=== PATIENT | male | born 1970 | race Caucasian/White ===

== ENCOUNTER 2024-08-19 11:19 | Emergency (ER) | payer OTHER, SELFPAY ==
[2024-08-19] VITALS (15 sets, daily range): BP systolic 118–129; BP diastolic 83–99; PULSE 80–202; TEMP 37.3; O2SAT 94–99; BMI 27.9
--- NOTE | 2024-08-19 11:31 | ECG_ITS ---
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 Measurements Intervals [place] Rate: 188 P: -[id number] NM: -[id number] QRS: -25 QRSD: 120 T: 78 QT: 318 QTc: 415 Interpretive Statements SUPRAVENTRICULAR TACHYCARDIA ST segment depression, consider subendocardial ischemia 7202 Moderate left axis deviation abnormal ECG Compared to ECG 10/16/2018 14:15:34 Left-axis deviation now present Supraventricular tachycardia has replaced sinus rhythm ST segment depression is now present Electronically Signed On 08-19-2024 19:15:46 EDT by LEON DARBY M.D.
--- NOTE | 2024-08-19 11:31 | XR_ITS ---
The [place] [address] Patient Name: JACKSON BENNETT MRN: [id number] date: 1970 Sex: M Assigned Patient Location: ED.MAIN Current Patient Location: ED.MAIN Accession/Order Number: [id number] Exam Date: 08/19/2024 12:07 Report Date: 08/19/2024 12:08 At the request of: VIET MONTE MD Procedure: XR chest 1V PORTABLE AP ERECT CHEST 1158 hours CLINICAL HISTORY: Tachycardia and lightheadedness after bending over COMPARISON: 04/19/2018 The heart is within normal limits. There is no vascular congestion. The lungs, as visualized, are clear. There is no effusion or pneumothorax. The osseous structures are intact. There is endplate spurring at the spine. XR/XR chest 1V IMPRESSION: NO ACUTE FINDINGS Impression dictated by: Cary Diallo M.D. 08/19/2024 12:08 PM Dictation Location: [place] [address] Electronically authenticated by: [id number] Y Date: 08/19/2024 12:08
--- NOTE | 2024-08-19 11:32 | ED.GENADUL1 ---
HPI HPI - General Adult General Chief complaint: Arrhythmia/Palpitations Stated complaint: FAST HEART RATE, BACK PAIN Time Seen by Provider: 08/19/24 11:27 Source: patient Mode of arrival: Wheelchair History of Present Illness HPI narrative: 53-year-old male presents for fast heartbeat. It started by half an hour ago when he was walking outside at his home. There was no specific exertion. He has never had this happen before. No syncope or near syncope. Symptom has been continuous. Related Data Allergies Allergy/AdvReac Type Severity Reaction Status Date / Time No Known Drug Allergies Allergy Verified 08/19/24 11:32 Review of Systems ROS Narrative A ten point review of systems is negative except as noted above. PFSH PFSH Social History Little interest or pleasure in doing things: not at all Feeling down, depressed, or hopeless: not at all Exam Narrative Exam Narrative: Nurses note and vital signs reviewed and patient is not hypoxic. General: The patient appears well and in no apparent distress. Patient is resting comfortably on cart. Skin: Warm, dry, no pallor noted. There is no rash noted. Head: Normocephalic, atraumatic Eye: Normal conjunctiva, no drainage Ears, Nose, Mouth, and Throat: oral mucosa is moist. Nares patent. Cardiovascular: Regular Rate and Rhythm, tachycardic Respiratory: Patient is in no distress, no accessory muscle use, lungs are clear to auscultation, no wheezing, rales or rhonchi Back: non-tender, no CVA tenderness bilaterally to percussion. GI: Soft and nontender Musculoskeletal: The patient has no evidence of calf tenderness, no pitting edema, symmetrical pulses noted bilaterally Neurological: A&O, normal speech Psychiatric: Cooperative Constitutional Vital Signs, click to edit/add: Last Vital Signs Temp 99.1 F 08/19/24 11:29 Pulse 81 08/19/24 11:50 Resp 16 08/19/24 11:50 BP 124/85 08/19/24 11:48 Pulse Ox 99 08/19/24 11:50 O2 Del Method Room Air 08/19/24 11:29 Course Vital Signs Vital signs: Vital Signs Pulse Rate 191 H 08/19/24 11:26 Respiratory Rate 14 08/19/24 11:26 Temperature 99.1 F 08/19/24 11:29 Pulse Rate 81 08/19/24 11:50 Respiratory Rate 16 08/19/24 11:50 Blood Pressure 124/85 08/19/24 11:48 Pulse Oximetry 99 08/19/24 11:50 Oxygen Delivery Method Room Air 08/19/24 11:29 Medical Decision Making MDM Narrative Medical decision making narrative: The patient presented with SVT. He received 6 mg of adenosine without change and then another dose of 6 mg again without change. He was given 12 mg of IV adenosine which then converted him into a normal sinus rhythm where he remains. His laboratory analysis is negative and he is feeling much better and is able to be discharged home. Prompt follow-up with cardiology was advised. Treatment diagnosis and follow-up were discussed with the patient. Differential Diagnosis Differential Diagnosis: SVT, A-fib, a flutter, sinus tachycardia Lab Data Lab results reviewed: Yes I reviewed the patient's lab results Labs: Lab Results 08/19/24 Range/Units 11:30 WBC 7.1 (4.0-11.0) 10^3/uL RBC 6.03 (4.70-6.10) 10^6/uL Hgb 18.0 (14.0-18.0) g/dL Hct 52.2 (42.0-54.0) % MCV 86.6 (80.0-94.0) fL MCH 29.9 (25.9-34.0) pg MCHC 34.5 (29.9-35.2) g/dL RDW 12.4 (11.0-15.0) % Plt Count 175 (150-450) 10^3/uL MPV 11.4 (9.5-13.5) fL Neut % (Auto) 51.1 (43.0-75.0) % Lymph % (Auto) 31.7 (20.5-60.0) % [place] % (Auto) 13.8 H (1.7-12.0) % Eos % (Auto) 2.0 (0.9-7.0) % Baso % (Auto) 1.0 (0.2-2.0) % Neut # (Auto) 3.6 (1.4-6.5) 10^3/uL Lymph # (Auto) 2.3 (1.2-3.8) 10^3/uL [place] # (Auto) 1.0 H (0.3-0.8) 10^3/uL Eos # (Auto) 0.1 (0.0-0.7) 10^3/uL Baso # (Auto) 0.1 (0.0-0.1) 10^3/uL Abs Immat Gran (auto) 0.03 (0.00-0.03) 10^3/uL Imm/Tot Granulo (auto) 0.4 (0.0-0.5) % Sodium 138 (136-145) mmol/L Potassium 3.7 (3.5-5.1) mmol/L Chloride 100 (98-107) mmol/L Carbon Dioxide 26.6 (21.0-32.0) mmol/L Anion Gap 15.1 BUN 16.0 (7.0-18.0) mg/dL Creatinine 1.33 H (0.70-1.30) mg/dL Est GFR ( Amer) >60 (>=60 mL/min/1.73m^2) Est GFR (Non-Af Amer) 56 L (>=60 mL/min/1.73m^2) BUN/Creatinine Ratio 12.0 Glucose 192 H (74-106) mg/dL Calcium 9.0 (8.5-10.1) mg/dL Magnesium 1.9 (1.8-2.4) mg/dL Troponin I High Sens 11.7 (4.0-76.1) pg/mL Imaging Data Chest x-ray: Radiologist's impression: ITS Impressions Chest X-Ray 08/19/24 11:31 IMPRESSION: NO ACUTE FINDINGS Impression dictated by: Cary Diallo M.D. 08/19/2024 12:08 PM Dictation Location: [place] [address] Electronically authenticated by: [id number] Y Date: 08/19/2024 12:08 ECG Data Attestation: I personally reviewed and interpreted this ECG as follows: (EKG on my interpretation shows SVT with a rate of 188) Discharge Plan Discharge Chief Complaint: Arrhythmia/Palpitations Clinical Impression: Supraventricular tachycardia Patient Disposition: Home, Self-Care Time of Disposition Decision: 12:21 Condition: Good Mode of Transportation: Private Vehicle Print Language: Djiboutian Instructions: Supraventricular Tachycardia (ED) Referrals: Chinedu Saucedo MD [Physician, Cardiology] - 1 week Naderer,Henrik, MD [Primary Care Provider, Family Practice] - 1 week
[2024-08-19] MEDS: ADENOSINE 6 MG/2 ML VIAL IVP ×2 (11:35→11:39)
--- NOTE | 2024-08-19 11:39 | PC.NURSE ---
Dr. Ambrosio at bedside, 6mg of adenosine adminstered at 1135 per order. heart rate 202 down to 183bpm. another 6mg given at [address] Ambrosio at bedside. heart rate 195 to 177. pt tolerating as expected.
[2024-08-19] MEDS: 0.9 % SODIUM CHLORIDE 1,000 ML 1000 ML IV (11:40)
--- NOTE | 2024-08-19 11:43 | PC.NURSE ---
Dr. Ambrosio remains at bedside. 12mg of adenosine administered per order at 1144. heart rate 190 down to 89. heart rate now normal sinus at 116. pt tolerated as expected. repeat ekg captured in normal sinus.
[2024-08-19] MEDS: ADENOSINE 6 MG/2 ML VIAL 12 MG IVP (11:44)
[2024-08-19 11:55] LABS: Basophils Absolute Auto 0.1 10^3/uL (0.0-0.1); Eosinophils Absolute Auto 0.1 10^3/uL (0.0-0.7); Hematocrit 52.2 % (42.0-54.0); Immature Granulocytes Abs Auto 0.03 10^3/uL (0.00-0.03); Immature Granulocytes Pct Auto 0.4 % (0.0-0.5); Lymphocytes Absolute Auto 2.3 10^3/uL (1.2-3.8); Lymphocytes Percent Auto 31.7 % (20.5-60.0); Mean Corpuscular HGB Conc 34.5 g/dL (29.9-35.2); Mean Corpuscular Hemoglobin 29.9 pg (25.9-34.0); Mean Corpuscular Volume 86.6 fL (80.0-94.0); Mean Platelet Volume 11.4 fL (9.5-13.5); Monocytes Percent Auto 13.8 % (1.7-12.0); Neutrophils Absolute Auto 3.6 10^3/uL (1.4-6.5); Neutrophils Percent Auto 51.1 % (43.0-75.0); Platelet Count 175 10^3/uL (150-450); Red Blood Count 6.03 10^6/uL (4.70-6.10); Red Cell Distribution Width 12.4 % (11.0-15.0); White Blood Count 7.1 10^3/uL (4.0-11.0)
[2024-08-19 12:11] LABS: Anion Gap 15.1; Carbon Dioxide 26.6 mmol/L (21.0-32.0); Chloride 100 mmol/L (98-107); Estimated GFR (African America >60 (>=60 mL/min/1.73m^2); Estimated GFR (Non-African Ame 56 (>=60 mL/min/1.73m^2); Glucose 192 mg/dL (74-106); Magnesium 1.9 mg/dL (1.8-2.4); Potassium 3.7 mmol/L (3.5-5.1); Sodium 138 mmol/L (136-145); Troponin I High Sensitivity 11.7 pg/mL (4.0-76.1)
--- NOTE | 2024-08-19 13:13 | ECG_ITS ---
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 Measurements Intervals [place] Rate: 99 P: 66 MN: 148 QRS: -18 QRSD: 90 T: 78 QT: 332 QTc: 388 Interpretive Statements 1100 Sinus rhythm [address] depression 9150 abnormal ECG Compared to ECG 08/19/2024 11:26:23 ST (T wave) deviation is still present Supraventricular tachycardia no longer present Left-axis deviation no longer present Electronically Signed On 08-19-2024 19:16:29 EDT by LEON DARBY M.D.
== END 2024-08-19 12:50 | disposition home or self-care (01) ==
PROVIDERS: Emergency Provider Emergency Medicine; PCP Family Medicine
DX: I47.10 Supraventricular tachycardia, unspecified (principal)
CPT/HCPCS: 36415; 71045; 80048; 83735; 84484; 85025; 93005; 96374; 99285

== ENCOUNTER 2024-08-25 11:52 | Outpatient (OUT) | payer OTHER, SELFPAY ==
--- OUTSIDE RECORDS SUMMARY | 2024-08-25 10:45 | XMS_ITS | Encounter Summary ---
Author Organization [facility] Address [address] [place] [address] Care Team Providers Care Environmental Professional Name Role Phone Henrik Tubbs MD Primary Care Provider [phone] Henrik Tubbs MD Unavailable Reason for Visit * Reason Comments Back Pain Encounter Details Date Type Department Care Team (Late st Contact Info) Description 08/25/2024 10:45 AM EDT Office Visit [facility] [address] [place] [phone] Henrik Tubbs MD [address] [place] [phone] Chronic left-sided low back pain with left-sided sciatica (Primary Dx); Paroxysmal SVT (supraventricular tachycardia) (CMS/HCC) Social History Tobacco Use Types Packs/Day Years Used Date Smoking Tobacco: Former Cigarettes Smokeless Tobacco: Never Tobacco Cessation:Counseling Given: No Alcohol Use Standard Drinks/Week Comments Yes 2 (1 standard drink = 0.6 oz pur e alcohol) B1300 Health Literacy Answer Date Recor ded How often do you need to hav e someone help you when you read instructions, pamphlets, or other written material from your doctor or pharmacy? Never 08/24/2024 Humiliation, Afraid, Rape, and Kick questionnair e Answer Date Recorded Within the last year, have y ou been afraid of your partner or ex-partner? No 08/24/2024 Within the last year, have y ou been humiliated or emotionally abused in other ways by your partner or ex-partner? No Within the last year, have y ou been kicked, hit, slapped, or otherwise physically hurt by your partner or ex-partner? No 08/24/2024 Within the last year, have y ou been raped or forced to have any kind of sexual activity by your partner or ex-partner? No 08/24/2024 Social Connection and Isolation Panel [NHANES] A nswer Date Recorded In a typical week, how many times do you talk on the phone with family, friends, or neighbors? Once a week 08/24/2024 How often do you get together with friends or re latives? Once a week 08/24/2024 How often do you attend yazidi or sabianist serv ices? Never 08/24/2024 Do you belong to any clubs o r organizations such as yazidi groups, unions, fraternal or athletic groups, or school groups? No 08/24/2024 How often do you attend meet ings of the clubs or organizations you belong to? Never 08/24/2024 Are you , , di vorced, , never , or living with a partner? Never 08/24/2024 AUDIT-C Answer Date Recorded Q1: How often do you have a drink containing alc ohol? Monthly or less 08/24/2024 Q2: How many drinks containi ng alcohol do you have on a typical day when you are drinking? 3 or 4 08/24/2024 Q3: How often do you have si x or more drinks on one occasion? Less than monthly 08/24/2024 Overall Financial Resource Strain (CARDIA) Answe r Date Recorded How hard is it for you to pa y for the very basics like food, housing, medical care, and heating? Not hard at all 08/24/2024 PHQ-2 Answer Date Recorded Patient Health Questionnaire-2 Score 0 07/08/2023 [facility] of Occupat ional Health - Occupational Stress Questionnaire Answer Date Recorded Do you feel stress - tense, restless, nervous, or anxious, or unable to sleep at night because your mind is troubled all the time - these days? Only a little 08/24/2024 Exercise Vital Sign Answer Date Recorde d On average, how many days pe r week do you engage in moderate to strenuous exercise (like a brisk walk)? 1 day 08/24/2024 On average, how many minutes do you engage in exercise at this level? 40 min 08/24/2024 Hunger Vital Sign Answer Date Recorded Within the past 12 months, y ou worried that your food would run out before you got the money to buy more. Never true 08/25/19 25 Within the past 12 months, t he food you bought just didn't last and you didn't have money to get more. Never true 08/24/2024 PRAPARE - Transportation Answer Date Re corded In the past 12 months, has l ack of transportation kept you from medical appointments or from getting medications? No 11/2024 In the past 12 months, has l ack of transportation kept you from meetings, work, or from getting things needed for daily living? No 08/24/2024 Housing Stability Vital Sign Answer Saul e Recorded In the last 12 months, was t here a time when you were not able to pay the mortgage or rent on time? No 07/07/2023 In the last 12 months, how many places have you lived? 1 07/07/2023 In the last 12 months, was t here a time when you did not have a steady place to sleep or slept in a intermediate (including now)? No 07/07/2023 Housing Stability Vital Sign Answer Saul e Recorded In the last 12 months, was t here a time when you were not able to pay the mortgage or rent on time? No 08/24/2024 Number of Times Moved in the Last Year Not on fi le 08/24/2024 At any time in the past 12 m [facility], were you homeless or living in a intermediate (including now)? No 08/24/2024 Sex and Gender Information Value Date Recorded Sex Assigned at Not on file Legal Sex Male 6:58 PM EDT Gender Identity Not on file Sexual Orientation Not on file documented as of this encounter Last Filed Vital Signs Vital Sign Reading Time Taken Comments Blood Pressure 130/86 08/25/2024 10:54 AM EDT Pulse 70 08/25/2024 10:54 AM EDT Temperature 36.3 C (97.3 F) 08/25/2024 10:54 AM EDT Respiratory Rate 20 08/25/2024 10:54 AM EDT Oxygen Saturation - - Inhaled Oxygen Concentration - - Weight 90.4 kg (199 lb 6 oz) 08/25/2024 10:54 AM EDT Height 180.3 cm (5' 11 ) 08/25/2024 10:54 AM EDT Body Mass Index 27.81 08/25/2024 10:54 AM EDT documented in this encounter Progress Notes * Henrik Tubbs MD - 08/25/2024 11:41 AM EDTAssociated Problem(s): Paroxysmal SVT (supraventricular tachycardia) (CMS/HCC) Recent episode and converted with adenosine. Follow up with cardiology. * Henrik Tubbs MD - 08/25/2024 11:41 AM EDTAssociated Problem(s): Chronic left- sided low back pain with left-sided sciatica Pain for years and likely DDD. Check x-ray. Start prednisone for inflammation. Use heat or massage PRN. Handout with ROM exercises to patient. If no improvement will need PT. * Henrik Tubbs MD - 08/25/2024 10:45 AM EDT Images from the original note were not included. Subjective Patient ID: Charlie Saldana is a 53 y.o. male who presents for Back Pain. C/o low back pain off and on for months and worse over past week. Pain in left low back and frequent tightness. Pain with bending and lifting. 1 week ago picking up sticks in yard and when bent over severe pain. Pain into left gluteal and down left leg. Numbness in leg and mild weakness. Heat not providing much relief. Developed heart racing and very lightheaded and dizzy. To ER 08/19 and found SVT. Given adenosine x 2 and converted to NSR. No palpitations since. Scheduled with cardiology 08/31. Review of Systems Constitutional: Negative for fatigue. Respiratory: Negative for cough, shortness of breath and wheezing. Cardiovascular: Negative for chest pain and palpitations. Gastrointestinal: Negative for abdominal pain, diarrhea, nausea and vomiting. Genitourinary: Negative for dysuria. Objective Physical Exam Constitutional: General: He is not in acute distress. Appearance: Normal appearance. HENT: Head: Normocephalic. Right Ear: Tympanic membrane and ear canal normal. Left Ear: Tympanic membrane and ear canal normal. Eyes: Extraocular Movements: Extraocular movements intact. Pupils: Pupils are equal, round, and reactive to light. Cardiovascular: Rate and Rhythm: Normal rate and regular rhythm. Heart sounds: No murmur heard. No friction rub. No gallop. Pulmonary: Breath sounds: Normal breath sounds. No wheezing, rhonchi or rales. Abdominal: General: Bowel sounds are normal. There is no distension. Palpations: Abdomen is soft. Tenderness: There is no abdominal tenderness. There is no guarding or rebound. Musculoskeletal: Left lower leg: No edema. Comments: Mild TTP left lower lumbar region Neurological: Mental Status: He is alert. Assessment/Plan Problem List Items Addressed This Visit Paroxysmal SVT (supraventricular tachycardia) (CMS/HCC) Recent episode and converted with adenosine. Follow up with cardiology. Chronic left-sided low back pain with left-sided sciatica - Primary Pain for years and likely DDD. Check x-ray. Start prednisone for inflammation. Use heat or massage PRN. Handout with ROM exercises to patient. If no improvement will need PT. Relevant Medications predniSONE (Deltasone) 50 MG tablet Other Relevant Orders XR lumbar spine 2 or 3 views documented in this encounter Plan of Treatment Scheduled Orders Name Type Priority Associated Diagnoses Orde r Schedule XR lumbar spine 2 or 3 views Imaging Routine Chronic left-sided low back pain with left-sided sciatica Expected: 08/25/2024, Expires: 08/25/2025 documented as of this encounter Visit Diagnoses Diagnosis Chronic left-sided low back pain with left-sided sciatica- Primary Paroxysmal SVT (supraventricular tachycardia) (CMS/HCC) documented in this encounter Care Teams Environmental Professional Relationship Specialty Start Date End Date Henrik Tubbs MD [address] [place] [phone] PCP - General Family Medicine 07/08/23 Henrik Tubbs MD [address] [place] [phone] PCP - Medical [place] [employer] 03/18/15 03/17/99 documented as of this encounter
--- OUTSIDE RECORDS SUMMARY | 2024-08-25 11:56 | XMS_ITS | Encounter Summary ---
Author Organization [facility] Address [address] [place] [address] Care Team Providers Care Shared Services And Outsourcing Manager Name Role Phone Henrik Tubbs MD Primary Care Provider [phone] Henrik Tubbs MD Unavailable Encounter Details Date Type Department Care Team (Latest Contact Info) Description 08/24/2024 Travel Social History Tobacco Use Types Packs/Day Years Used Date Smoking Tobacco: Former Cigarettes Smokeless Tobacco: Never B1300 Health Literacy Answer Date Recor ded [...] week 08/24/2024 How often do you attend restorationist or anglican serv ices? Never 08/24/2024 Do you belong to any clubs o r organizations such as restorationist groups, unions, fraternal or athletic groups, or [...] Recorded Patient Health Questionnaire-2 Score 0 07/08/2023 [facility] of Occupat ional Health - Occupational Stress [...] place to sleep or slept in a assisted (including now)? No 07/07/2023 Housing Stability Vital Sign Answer Saul e Recorded In the last 12 months, was t here a time when you were not able to pay the mortgage or rent on time? No 08/24/2024 Number of Times Moved in the Last Year Not on fi le 08/24/2024 At any time in the past 12 m [facility], were you homeless or living in a assisted (including now)? No 08/24/2024 Sex and Gender Information Value Date Recorded Sex Assigned at Not on file Legal Sex Male 6:58 PM EDT Gender Identity Not on file Sexual Orientation Not on file documented as of this encounter Functional Status * Audit-C Score Answer Date of Assessment Author 3 08/24/2024 11:32 AM EDT Mychart, Generic * Q1: How often do you have a drink containing alcohol? Answer Date of Assessment Author Monthly or less 08/24/2024 11:32 AM EDT Mychart, Generic * Q2: How many drinks containing alcohol do you have on a typical day when you are drinking? Answer Date of Assessment Author 3 or 4 08/24/2024 11:32 AM EDT Mychart, Generic * Q3: How often do you have six or more drinks on one occasion? Answer Date of Assessment Author Less than monthly 08/24/2024 11:32 AM EDT Mychar t, Generic documented as of this encounter Plan of Treatment Not on file documented as of this encounter Visit Diagnoses Not on filedocumented in this encounter Care Teams Shared Services And Outsourcing Manager Relationship Specialty Start Date End Date Henrik Tubbs MD [address] [place] [phone] PCP - General Family Medicine 07/08/23 Henrik Tubbs MD [address] [place] [phone] PCP - Medical [place] [employer] 03/18/15 03/17/99 documented as of this encounter
--- OUTSIDE RECORDS SUMMARY | 2024-08-25 11:56 | XMS_ITS | Clinical Summary ---
Author Organization [facility] Address [address] [place] [address] Care Team Providers Care Laborer Brush Clearing Name Role Phone Unavailable Primary Care Provider Unavailabl e Social History Tobacco Use Types Packs/Day Years Used Date Smoking Tobacco: Never Assessed Sex and Gender Information Value Date Recorded Sex Assigned at Not on file Gender Identity Not on file Sexual Orientation Not on file Last Filed Vital Signs Vital Sign Reading Time Taken Comments Blood Pressure 133/83 02/27/2021 3:36 PM EST Pulse - - Temperature - - Respiratory Rate - - Oxygen Saturation 97% 02/27/2021 3:36 PM EST Inhaled Oxygen Concentration - - Weight 94.3 kg (208 lb) 02/27/2021 3:35 PM EST Height 180.3 cm (5' 11 ) 02/27/2021 3:33 PM EST Body Mass Index 29.01 02/27/2021 3:33 PM EST Plan of Treatment Upcoming Encounters Date Type Department Care Team (Late st Contact Info) Description 08/31/2024 2:45 PM EDT Office Visit [facility] [address] [place] [address] Juan Daniel Cordova MD [address] [facility] [address] [facility] [place] [address] Health Maintenance Due Date Last Done Comments CT Colonography 1970 Colonoscopy 1970 Colorectal Cancer Screening 1970 FIT-DNA 1970 FIT 1970 FOBT 1970 Sigmoidoscopy 1970 Depression Screening 1981 Hepatitis B Vaccines (1 of 3 - 19+ 3-dose series) 1988 Adult Tetanus 10/27/1991 Zoster Vaccines (1 of 2) 10/27/2019 Influenza Vaccine (Season Ended) 2024 HIB Vaccines Aged Out No longer eligi ble based on patient's age to complete this topic HPV Vaccines Aged Out No longer eligi ble based on patient's age to complete this topic IPV Vaccines Aged Out No longer eligi ble based on patient's age to complete this topic Meningococcal B Vaccine Aged Out No l onger eligible based on patient's age to complete this topic Meningococcal Vaccine Aged Out No benigno sol eligible based on patient's age to complete this topic Pneumococcal Vaccine: Pediat rics (0 to 5 Years) and At-Risk Patients (6 to 64 Years) Aged Out No longer eligible b ased on patient's age to complete this topic Rotavirus Vaccines Aged Out No longer eligible based on patient's age to complete this topic
--- OUTSIDE RECORDS SUMMARY | 2024-08-25 11:56 | XMS_ITS | Encounter Summary ---
Author Organization [facility] Address [address] [place] [address] Care Team Providers Care Tie Loader Name Role Phone Henrik Tubbs MD Primary Care Provider [phone] Henrik Tubbs MD Unavailable Encounter Details Date Type Department Care Team (Late st Contact Info) Description 08/19/2024 Orders Only [facility] [address] [place] [phone] Theodore Ambrosio MD [address] [place], [place] [phone] Social History Tobacco Use Types Packs/Day Years Used Date Smoking Tobacco: Former Cigarettes Smokeless Tobacco: Never Social Connection and Isolation Panel [NHANES] A nswer Date Recorded In a typical week, how many times do you talk on the phone with family, friends, or neighbors? Once a week 07/07/2023 How often do you get together with friends or re latives? Once a week 07/07/2023 How often do you attend mormon or jainism serv ices? Never 07/07/2023 Do you belong to any clubs o r organizations such as mormon groups, unions, fraternal or athletic groups, or school groups? No 07/07/2023 How often do you attend meet ings of the clubs or organizations you belong to? Never 07/07/2023 Are you , , di vorced, , never , or living with a partner? Never 07/07/2023 AUDIT-C Answer Date Recorded Q1: How often do you have a drink containing alc ohol? 2-4 times a month 07/07/2023 Q2: How many drinks containi ng alcohol do you have on a typical day when you are drinking? 3 or 4 07/07/2023 Q3: How often do you have si x or more drinks on one occasion? Never 07/07/2023 Overall Financial Resource Strain (CARDIA) Answe r Date Recorded How hard is it for you to pa y for the very basics like food, housing, medical care, and heating? Not hard at all 07/07/2023 PHQ-2 Answer Date Recorded Patient Health Questionnaire-2 Score 0 07/08/2023 [facility] - Occupational Stress Questionnaire Answer Date Recorded Do you feel stress - tense, restless, nervous, or anxious, or unable to sleep at night because your mind is troubled all the time - these days? Not at all 07/07/2023 Exercise Vital Sign Answer Date Recorde d On average, how many days pe r week do you engage in moderate to strenuous exercise (like a brisk walk)? 1 day 07/07/2023 On average, how many minutes do you engage in exercise at this level? 120 min 07/07/2023 Hunger Vital Sign Answer Date Recorded Within the past 12 months, y ou worried that your food would run out before you got the money to buy more. Never true 07/07/19 24 Within the past 12 months, t he food you bought just didn't last and you didn't have money to get more. Never true 07/07/2023 PRAPARE - Transportation Answer Date Re corded In the past 12 months, has l ack of transportation kept you from medical appointments or from getting medications? No 06/17 In the past 12 months, has l ack of transportation kept you from meetings, work, or from getting things needed for daily living? No 07/07/2023 Housing Stability Vital Sign Answer [...] place to sleep or slept in a senior living (including now)? No 07/07/2023 Sex and Gender Information Value Date Recorded Sex Assigned at Not on file Legal Sex Male 6:58 PM EDT Gender Identity Not on file Sexual Orientation Not on file documented as of this encounter Plan of Treatment Not on file documented as of this encounter Procedures Procedure Name Priority Date/Time Associated Diagnosis Comments XR ABDOMEN 1 VIEW Routine 08/19/2024 1:19 PM EDT documented in this encounter Results * XR abdomen 1 view (08/19/2024 1:19 PM EDT) Anatomical Region Laterality Modality Abdomen Radiographic Susan ging us Theodore Ambrosio MD IMG XR PROCEDURES Final Resul t documented in this encounter Visit Diagnoses Not on filedocumented in this encounter Care Teams Tie Loader Relationship Specialty Start Date End Date Henrik Tubbs MD [address] [place] [phone] PCP - General Family Medicine 07/08/23 Henrik Tubbs MD [address] [place] [address] PCP - Medical [place] [employer] 03/18/15 03/17/99 documented as of this encounter
--- OUTSIDE RECORDS SUMMARY | 2024-08-25 11:56 | XMS_ITS | Clinical Summary ---
Author Organization [facility] Address [id number] [address] [place] [address] Care Team Providers Care Engine Emission Technician Name Role Phone MonikDaniella bond Kaycee RAIL MAINTENANCE WORKER-THEATRICAL SCENIC DESIGNER Primary Care Provider Allergies No known active allergies Medications omeprazole (PriLOSEC) 20 mg capsule Take by mouth 2 (two) times a day. Active omeprazole (PriLOSEC) 40 mg capsule Take 40 mg by mouth 2 (two) times a day. 05/31/2019 Active Active Problems No known active problems Family History Medical History Relation Name Comments Diverticulitis Maternal Grandmother Heart disease Mother Relation Name Status Comments Father Alive Maternal Grandmother Mother Alive Social History Tobacco Use Types Packs/Day Years Used Date Smoking Tobacco: Former Cigarettes Q uit: 06/2016 Smokeless Tobacco: Never Alcohol Use Standard Drinks/Week Comments Yes 1 (1 standard drink = 0.6 oz pur e alcohol) Childcare Answer Date Recorded Childcare Unknown 12/22/2018 Employment Answer Date Recorded Employment Unknown 12/22/2018 Purpose - Life Answer Date Recorded Purpose and direction in life Unknown Sex and Gender Information Value Date Recorded Sex Assigned at Not on file Legal Sex Male 11:50 AM EDT Gender Identity Not on file Sexual Orientation Not on file Last Filed Vital Signs Vital Sign Reading Time Taken Comments Blood Pressure 138/86 06/05/2019 9:50 AM EDT Pulse 73 02/02/2019 9:59 AM EST Temperature 36.7 C (98.1 F) 02/02/2019 7:30 AM EST Respiratory Rate 16 02/02/2019 9:59 AM EST Oxygen Saturation 97% 02/02/2019 10:30 AM EST Inhaled Oxygen Concentration - - Weight 90.3 kg (199 lb) 06/05/2019 9:50 AM EDT Height 180.3 cm (5' 11 ) 06/05/2019 9:50 AM EDT Body Mass Index 27.75 06/05/2019 9:50 AM EDT Plan of Treatment Health Maintenance Due Date Last Done Comments Depression Screening 1981 Tobacco Screening 1981 Adult BMI Screening 10/27/1987 DTaP,Tdap and Td Vaccines (1 - Tdap) 1988 Zoster (Shingles) Vaccine (1 of 2) 10/27/2019 Colonoscopy 02/02/2022 02/02/2019, 02/02/2019 Influenza Vaccine 11/16/2024 Medical Devices Not on file Procedures Procedure Name Priority Date/Time Associated Diagnosis Comments COLONOSCOPY 02/02/2019 9:27 AM EST from Last 3 Months or Most Recently Relevant to Health Maintenance Results * Colonoscopy (02/02/2019 9:27 AM EST) 02/02/2019 9:27 AM EST Narrative PM CARDIOVASCULAR - 02/02/2019 9:55 AM EST [facility] Patient Name: Charlie Saldana Procedure Date No Time: 02/02/2019 CSN : [id number] Date of : 1970 Admit Type: Outpatient Age: 48 Room: [place] [address] Gender: Male Note Status: Finalized Attending MD: Chad Krishnamurthy DO Procedure: Colonoscopy Indications: Abdominal pain in the left lower quadrant, Rectal bleeding Providers: Chad Krishnamurthy DO Medicines: Propofol per Anesthesia Complications: No immediate complications. Procedure: After I obtained informed consent, the scope was passed under direct vision. Throughout the procedure, the patient's blood pressure, pulse, and oxygen saturations were monitored continuously. The OLYMPUS CF-190L # [id number] ADULT COLONOSCOPE was introduced through the anus and advanced to the cecum, identified by appendiceal orifice and ileocecal valve. The colonoscopy was performed without difficulty. The patient tolerated the procedure well. The quality of the bowel preparation was excellent. Findings: The perianal and digital rectal examinations were normal. A few small-mouthed diverticula were found in the sigmoid colon and descending colon. Three sessile polyps were found in the rectum, splenic flexure and ascending colon. The polyps were 4 to 7 mm in size. These polyps were removed with a hot snare. Resection and retrieval were complete. A 4 mm polyp was found in the splenic flexure. The polyp was sessile. Fulguration to ablate the lesion by monopolar probe was successful. The exam was otherwise without abnormality on direct and retroflexion views. Estimated Blood Loss: Estimated blood loss: none. Impression: - Diverticulosis in the sigmoid colon and in the descending colon. - Three 4 to 7 mm polyps in the rectum, at the splenic flexure and in the ascending colon, removed with a hot snare. Resected and retrieved. - One 4 mm polyp at the splenic flexure. Treated with a monopolar probe. - The examination was otherwise normal on direct and retroflexion views. Recommendation: - Written discharge instructions were provided to the patient. - The signs and symptoms of potential delayed complications were discussed with the patient. - Patient has a contact number available for emergencies. - Return to normal activities tomorrow. - High fiber diet for the rest of the patient's life. - Repeat colonoscopy in 3 years for surveillance based on pathology results. - Return to my office in 1 week. Procedure Code(s): --- Professional --- 32564, Colonoscopy, flexible; with ablation of tumor(s), polyp(s), or other lesion(s) (includes pre- and post-dilation and guide wire passage, when performed) 55144, 59, Colonoscopy, flexible; with removal of tumor(s), polyp(s), or other lesion(s) by snare technique Diagnosis Code(s): --- Professional --- K62.1, Rectal polyp D12.3, Benign neoplasm of transverse colon (hepatic flexure or splenic flexure) D12.2, Benign neoplasm of ascending colon R10.32, Left lower quadrant pain K62.5, Hemorrhage of anus and rectum K57.30, Diverticulosis of large intestine without perforation or abscess without bleeding CPT copyright 2018 [employer]. All rights reserved. The codes documented in this report are preliminary and upon inspector of weights and measures review may be revised to meet current compliance requirements. DO Chad Ruiz DO 02/02/2019 9:54:12 AM Number of Addenda: 0 Note Initiated On: 02/02/2019 9:27 AM Procedure Note Chad Krishnamurthy DO - 02/02/2019 [facility] Patient Name: Charlie Saldana Procedure Date No Time: 02/02/2019 CSN : [id number] Date of : 1970 Admit Type: Outpatient Age: 48 Room: [place] [address] Gender: Male Note Status: Finalized Attending MD: Chad Krishnamurthy DO Procedure: Colonoscopy Indications: Abdominal pain in the left lower quadrant, Rectal bleeding Providers: Chad Krishnamurthy DO Medicines: Propofol per Anesthesia Complications: No immediate complications. Procedure: After I obtained informed consent, the scope waspassed under direct vision. Throughout the procedure, the patient's blood pressure, pulse, and oxygensaturations were monitored continuously. The OLYMPUS CF-190L # [id number] ADULT COLONOSCOPE was introduced through the anus and advanced to the cecum, identified by appendiceal orifice and ileocecal valve. The colonoscopy was performed without difficulty. The patient tolerated the procedure well. The quality of the bowel preparation was excellent. Findings: The perianal and digital rectal examinations were normal. A few small-mouthed diverticula were found in the sigmoid colon and descending colon. Three sessile polyps were found in the rectum, splenic flexure and ascending colon. The polyps were 4 to 7 mm in size. These polyps were removed with a hot snare. Resection and retrieval were complete. A 4 mm polyp was found in the splenic flexure. The polyp was sessile. Fulguration to ablate the lesion by monopolar probe was successful. The exam was otherwise without abnormality on direct and retroflexion views. Estimated Blood Loss: Estimated blood loss: none. Impression: - Diverticulosis in the sigmoid colon and in the descending colon. - Three 4 to 7 mm polyps in the rectum, at thesplenic flexure and in the ascending colon, removed with ahot snare. Resected and retrieved. - One 4 mm polyp at the splenic flexure. Treatedwith a monopolar probe. - The examination was otherwise normal on direct and retroflexion views. Recommendation: - Written discharge instructions were provided tothe patient. - The signs and symptoms of potential delayed complications were discussed with the patient. - Patient has a contact number available for emergencies. - Return to normal activities tomorrow. - High fiber diet for the rest of the patient'slife. - Repeat colonoscopy in 3 years for surveillancebased on pathology results. - Return to my office in 1 week. Procedure Code(s): --- Professional --- 81978, Colonoscopy, flexible; with ablation of tumor(s), polyp(s), or other lesion(s) (includespre- and post-dilation and guide wire passage, when performed) 99375, 59, Colonoscopy, flexible; with removal of tumor(s), polyp(s), or other lesion(s) by snare technique Diagnosis Code(s): --- Professional --- K62.1, Rectal polyp D12.3, Benign neoplasm of transverse colon (hepatic flexure orsplenic flexure) D12.2, Benign neoplasm of ascending colon R10.32, Left lower quadrant pain K62.5, Hemorrhage of anus and rectum K57.30, Diverticulosis of large intestine without perforation orabscess without bleeding CPT copyright 2018 [employer]. All rights reserved. The codes documented in this report are preliminary and upon inspector of weights and measures reviewmay be revised to meet current compliance requirements. DO Chad Ruiz DO 02/02/2019 9:54:12 AM Number of Addenda: 0 Note Initiated On: 02/02/2019 9:27 AM Chad Krishnamurthy DO GI PROCEDURE ORDERABLES Fin al Result PM CARDIOVASCULAR from Last 3 Months or Most Recently Relevant to Health Maintenance Insurance [address] [place] [address] [employer] Care Teams Engine Emission Technician Relationship Specialty Start Date End Date Daniella Brice, RAIL MAINTENANCE WORKER-THEATRICAL SCENIC DESIGNER [address] [place] [address] PCP - General Nurse Practitioner 12/22/18
--- OUTSIDE RECORDS SUMMARY | 2024-08-25 11:56 | XMS_ITS | Referral Summary ---
Author Organization [facility] Address [address] [place] [address] Care Team Providers Care Registered Health Nurse Name Role Phone Unavailable Primary Care Provider [...] Description 08/31/2024 2:45 PM EDT Office Visit [facility] [address] [place] [address] Juan Daniel Cordova MD [address] [facility] [address] [place] [address]
--- OUTSIDE RECORDS SUMMARY | 2024-08-25 11:56 | XMS_ITS | Encounter Summary ---
Author Organization [facility] Address [address] [place] [address] Care Team Providers Care Apartment Maintenance Name Role Phone Henrik Tubbs MD Primary Care Provider [phone] Henrik Tubbs MD Unavailable Encounter Details Date Type Department Care Team (Late st Contact Info) Description 08/20/2024 Patient Self-Triage [facility] [address] [place] [address] Yana Keene, Physician, [address] [place] [address] Social History Tobacco Use Types Packs/Day Years [...] week 07/07/2023 How often do you attend taoism or quaker serv ices? Never 07/07/2023 Do you belong to any clubs o r organizations such as taoism groups, unions, fraternal or athletic groups, or [...] Recorded Patient Health Questionnaire-2 Score 0 07/08/2023 [facility] - Occupational Stress [...] place to sleep or slept in a custodial (including now)? No 07/07/2023 Sex and Gender Information Value Date Recorded Sex Assigned at Not on file Legal Sex Male 6:58 PM EDT Gender Identity Not on file Sexual Orientation Not on file documented as of this encounter Plan of Treatment Not on file documented as of this encounter Visit Diagnoses Not on filedocumented in this encounter Care Teams Apartment Maintenance Relationship Specialty Start Date End Date Henrik Tubbs MD [address] [place] [phone] PCP - General Family Medicine 07/08/23 Henrik Tubbs MD [address] [place] [phone] PCP - Medical [place] [employer] 03/18/15 03/17/99 documented as of this encounter
--- OUTSIDE RECORDS SUMMARY | 2024-08-25 11:56 | XMS_ITS | Encounter Summary ---
Author Organization [facility] Address [address] [place] [address] Care Team Providers Care Educational Therapy Teacher Name Role Phone Henrik Tubbs MD Primary Care Provider [phone] Henrik Tubbs MD Unavailable Encounter Details Date Type Department Care Team (Late st Contact Info) Description 08/25/2024 [facility]amboo [facility] [address] [place] [phone] Henrik Tubbs MD [address] [place] [address] Social History Tobacco Use Types Packs/Day Years Used Date Smoking Tobacco: Former Cigarettes Smokeless Tobacco: Never Alcohol Use Standard Drinks/Week Comments Yes 2 [...] week 08/24/2024 How often do you attend tenriism or worship serv ices? Never 08/24/2024 Do you belong to any clubs o r organizations such as tenriism groups, unions, fraternal or athletic groups, or [...] Recorded Patient Health Questionnaire-2 Score 0 07/08/2023 [facility] - Occupational [...] place to sleep or slept in a alf (including now)? No 07/07/2023 Housing Stability Vital [...] were you homeless or living in a alf (including now)? No 08/24/2024 Sex and Gender Information Value Date Recorded Sex Assigned at Not on file Legal Sex Male 6:58 PM EDT Gender Identity Not on file Sexual Orientation Not on file documented as of this encounter Plan of Treatment Not on file documented as of this encounter Visit Diagnoses Not on filedocumented in this encounter Care Teams Educational Therapy Teacher Relationship Specialty Start Date End Date Henrik Tubbs MD [address] [place] [address] PCP - General Family Medicine 07/08/23 Henrik Tubbs MD [address] [place] [address] PCP - Medical [place] [employer] 03/18/15 03/17/99 documented as of this encounter
--- OUTSIDE RECORDS SUMMARY | 2024-08-25 11:56 | XMS_ITS | Clinical Summary ---
Author Organization [facility] Address [address] [place] [address] Care Team Providers Care Multi Site Leasing Consultant Name Role Phone Henrik Tubbs MD Primary Care Provider [phone] Henrik Tubbs MD Unavailable Allergies No known active allergies Medications omeprazole (PriLOSEC) [address] capsule Take by mouth twice a day Active predniSONE (Deltasone) 50 MG tabletIndication s:Chronic left-sided low back pain with left-sided sciatica Take 1 tablet (50 mg) by mouth Daily for 6 days 6 tablet 08/25/2024 Active Active Problems Problem Noted Date Diagnosed Date Paroxysmal SVT (supraventricular tachycardia) Assessment & Plan (08/25/2024 11:41 AM EDT): Recent episode and converted with adenosine. Follow up with cardiology. Chronic left-sided low back pain with left-sided sciatica 08/25/2024 Assessment & Plan (08/25/2024 11:41 AM EDT): Pain for years and likely DDD. Check x-ray. Start prednisone for inflammation. Use heat or massage PRN. Handout with ROM exercises to patient. If no improvement will need PT. Abnormal EKG 07/08/2023 Chronic pansinusitis 07/08/2023 Dyspepsia 07/08/2023 Elevated blood pressure read ing without diagnosis of hypertension 07/08/2023 Thoracic spine pain 07/08/2023 Resolved Problems Problem Noted Date Diagnosed Date Resolved Date Diverticulitis 07/08/2023 07/08/2023 Melena 07/08/2023 07/08/2023 Acute labyrinthitis, right 07/08/2023 0 08/25/2024 Assessment & Plan (07/08/2023 2:29 PM EDT): Fluid behind TM causing symptoms. Take antibiotics BID for 10 days. Use prednisone for inflammation. Use sudafed or other decongestants as needed. Use Robitussin or Robitussin-DM for cough. Can use afrin for congestion but no longer than 3 days. Can use Mucinex to bring up phlegm. Use Motrin or Tylenol as needed for fever, aches, or pains. Increase fluid intake and rest. Should improve over next 5-7 days and if no better or worse call for re-evaluation. Encounters Date Type Department Care Team Description 08/25/2024 10:45 AM EDT Office Visit [facility] [address] [place] [address] Henrik Tubbs MD Chronic left-sided low back pain with left-sided sciatica (Primary Dx); Paroxysmal SVT (supraventricular tachycardia) (CMS/HCC) 08/25/2024 Bamboo flowsheet [facility] [address] [place] [address] Henrik Tubbs MD 08/24/2024 Travel 08/20/2024 Patient Self-Triage [facility] [address] [place] [address] Yana Keene PhysicianMD 08/19/2024 Orders Only [facility] [address] [place] [address] Theodore Ambrosio MD from Last 3 Months Social History Tobacco Use Types Packs/Day Years [...] week 08/24/2024 How often do you attend baptism or shinto serv ices? Never 08/24/2024 Do you belong to any clubs o r organizations such as baptism groups, unions, fraternal or athletic groups, or [...] Recorded Patient Health Questionnaire-2 Score 0 07/08/2023 [facility] - Occupational Stress Questionnaire Answer Date Recorded [...] place to sleep or slept in a penitentiary (including now)? No 07/07/2023 Housing Stability Vital Sign Answer Saul e Recorded In the last 12 months, was t here a time when you were not able to pay the mortgage or rent on time? No 08/24/2024 Number of Times Moved in the Last Year Not on fi le 08/24/2024 At any time in the past 12 m [facility], were you homeless or living in a penitentiary (including now)? No 08/24/2024 Sex and Gender [...] 20 08/25/2024 10:54 AM EDT Oxygen Saturation 97% 07/08/2023 2:04 PM EDT Inhaled Oxygen Concentration - - Weight 90.4 kg (199 lb 6 oz) 08/25/2024 10:54 AM EDT Height 180.3 cm (5' 11 ) 08/25/2024 10:54 AM EDT Body Mass Index 27.81 08/25/2024 10:54 AM EDT Plan of Treatment Health Maintenance Due Date Last Done Comments Influenza Vaccine (Season Ended) 2024 Colonoscopy Discontinued 02/02/2019, 02/02/2019 Colorectal Cancer Screening Discontinued CT Colonography Discontinued FIT-DNA Discontinued FIT Discontinued FOBT Discontinued Sigmoidoscopy Discontinued Procedures Procedure Name Priority Date/Time Associated Diagnosis Comments XR ABDOMEN 1 VIEW Routine 08/19/2024 1:19 PM EDT from Last 3 Months Results * XR abdomen 1 view (08/19/2024 1:19 PM EDT) Anatomical Region Laterality Modality Abdomen Radiographic Susan ging Theodore Ambrosio MD IMG XR PROCEDURES Final Resul t from Last 3 Months Insurance [employer] Care Teams Multi Site Leasing Consultant Relationship Specialty Start Date End Date Henrik Tubbs MD [address] [place] [phone] PCP - General Family Medicine 07/08/23 Henrik Tubbs MD [address] [place] [phone] PCP - Medical [place] [employer] 03/18/15 03/17/99
--- NOTE | 2024-08-25 11:58 | XR_ITS ---
[facility] [place] [id number] Patient Name: JACKSON BENNETT MRN: [id number] date: 1970 Sex: M Assigned Patient Location: RAD Current Patient Location: [facility] Accession/Order Number: [id number] Exam Date: 08/25/2024 12:36 Report Date: 08/25/2024 12:38 At the request of: BRITNEY DUNN MD Procedure: XR lumbar spine 2-3V LUMBAR SPINE - 3 views COMPARISON: None CLINICAL DATA: Chronic left-sided back pain with radiation to the legs where numbness is present. Recent worsening. AP, lateral lumbar and lumbosacral views were obtained. No acute fractures are identified. There is minimal retrolisthesis of L5 on S1. No disproportionate disc space narrowing is present. There is mild endplate spurring, greatest at L3 and L4. There is also mild lower lumbar facet hypertrophy. The SI joints are intact and show mild sclerosis. No paraspinal soft tissue abnormalities are present. XR/XR lumbar spine 2-3V IMPRESSION: DEGENERATIVE CHANGES. NO ACUTE BONY FINDINGS. Impression dictated by: Cary Diallo M.D. 08/25/2024 12:38 PM Dictation Location: [place] [address] Electronically authenticated by: [id number] Y Date: 08/25/2024 12:38
== END 2024-08-25 11:53 | disposition home or self-care (01) ==
LOC: RAD 11:54
PROVIDERS: PCP Family Medicine; Visit Provider Family Medicine
DX: M54.42 Lumbago with sciatica, left side (principal); M51.369 Other intervertebral disc degeneration, lumbar region without mention of lumbar back pain or lower extremity pain
CPT/HCPCS: 72100

== ENCOUNTER 2024-09-01 09:00 | Outpatient (OUT) | payer OTHER, SELFPAY ==
[2024-09-01 09:57] LABS: Alanine Aminotransferase 31 U/L (16-63); Albumin Globulin Ratio 1.2; Albumin Level 3.5 g/dL (3.4-5.0); Alkaline Phosphatase 72 U/L (46-116); Aspartate Amino Transferase 18 U/L (15-37); Bilirubin Direct 0.3 mg/dL (0.0-0.2); Bilirubin Total 1.6 mg/dL (0.2-1.0); Chol HDL Ratio 3.8; Cholesterol 165 mg/dL (<=200); HDL Cholesterol 44 mg/dL (40-60); Total Protein 6.5 g/dL (6.4-8.2); Triglycerides 110 mg/dL (<=150)
== END 2024-09-01 09:01 | disposition home or self-care (01) ==
LOC: LAB 09:02
PROVIDERS: PCP Family Medicine; Visit Provider Internal Medicine Interventional Cardiology
DX: I10 Essential (primary) hypertension (principal)
CPT/HCPCS: 36415; 80061; 80076

== ENCOUNTER 2024-09-15 07:23 | Outpatient (OUT) | payer OTHER, SELFPAY ==
--- OUTSIDE RECORDS SUMMARY | 2024-09-15 07:25 | XMS_ITS | Clinical Summary ---
Author Organization [employer] s [employer] Address [id number] [address] [place] [address] Care Team Providers Care Tool Mechanic Name Role Phone MonikDaniella bond Kaycee OPERATIONS BUSINESS PARTNER-SUPERINTENDENT COMMUNICATIONS Primary Care Provider Allergies No known active [...] PM CARDIOVASCULAR - 02/02/2019 9:55 AM EST [facility] Patient Name: Charlie Saldana Procedure Date No Time: 02/02/2019 CSN : [id number] Date of : 1970 Admit Type: Outpatient Age: 48 Room: [place] [address] Gender: Male Note Status: Finalized Attending MD: Chad Krishnamurthy DO Procedure: Colonoscopy Indications: Abdominal pain in the left lower quadrant, Rectal bleeding Providers: Chad Krishnaumrthy DO Medicines: Propofol per Anesthesia Complications: No immediate complications. Procedure: After I obtained informed consent, the scope was passed under direct vision. Throughout the procedure, the patient's blood pressure, pulse, and oxygen saturations were monitored continuously. The OLYMPUS CF-190L # [id number] ADULT COLONOSCOPE was introduced through the anus [...] 1 week. Procedure Code(s): --- Professional --- 18200, Colonoscopy, flexible; with ablation of tumor(s), polyp(s), or other lesion(s) (includes pre- and post-dilation and guide wire passage, when performed) 85446, 59, Colonoscopy, flexible; with removal of tumor(s), [...] or abscess without bleeding CPT copyright 2018 [employer]. All rights reserved. The codes documented in this report are preliminary and upon review coordinator review may be revised to meet current compliance requirements. DO Chad Ruiz DO 02/02/2019 9:54:12 AM Number of Addenda: 0 Note Initiated On: 02/02/2019 9:27 AM Procedure Note Chad Krishnamurthy DO - 02/02/2019 [facility] Patient Name: Charlie Saldana Procedure Date No Time: 02/02/2019 CSN : [id number] Date of : 1970 Admit Type: Outpatient Age: 48 Room: [place] [address] Gender: Male Note Status: Finalized Attending MD: Chad Krishnamurthy DO Procedure: Colonoscopy Indications: Abdominal pain in the left lower quadrant, Rectal bleeding Providers: Chad Krishnamurthy DO Medicines: Propofol per Anesthesia Complications: No immediate complications. Procedure: After I obtained informed consent, the scope waspassed under direct vision. Throughout the procedure, the patient's blood pressure, pulse, and oxygensaturations were monitored continuously. The OLYMPUS CF-190L # [id number] ADULT COLONOSCOPE was introduced through the anus [...] 1 week. Procedure Code(s): --- Professional --- 50115, Colonoscopy, flexible; with ablation of tumor(s), polyp(s), or other lesion(s) (includespre- and post-dilation and guide wire passage, when performed) 54373, 59, Colonoscopy, flexible; with removal of tumor(s), polyp(s), or other lesion(s) by snare technique Diagnosis Code(s): --- Professional --- K62.1, Rectal polyp D12.3, Benign neoplasm of transverse colon (hepatic flexure orsplenic flexure) D12.2, Benign neoplasm of ascending colon R10.32, Left lower quadrant pain K62.5, Hemorrhage of anus and rectum K57.30, Diverticulosis of large intestine without perforation orabscess without bleeding CPT copyright 2018 [employer]. All rights reserved. The codes documented in this report are preliminary and upon review coordinator reviewmay be revised to meet current compliance requirements. DO Chad Ruiz DO 02/02/2019 9:54:12 AM Number of Addenda: 0 Note Initiated On: 02/02/2019 9:27 AM Chad Krishnamurthy DO GI PROCEDURE ORDERABLES Fin al Result PM CARDIOVASCULAR from Last 3 Months or Most Recently Relevant to Health Maintenance Insurance [address] [place] [address] [employer] Care Teams Tool Mechanic Relationship Specialty Start Date End Date Daniella Brice, OPERATIONS BUSINESS PARTNER-SUPERINTENDENT COMMUNICATIONS [address] [place] [address] PCP - General Nurse Practitioner 12/22/18
--- OUTSIDE RECORDS SUMMARY | 2024-09-15 07:25 | XMS_ITS | Clinical Summary ---
Author Organization [facility] Address [address] [place] [address] Care Team Providers Care Director Of Rotc Name Role Phone Henrik Tubbs MD Primary Care Provider [phone] Allergies No known active allergies Medications omeprazole (PriLOSEC) [address] capsule Take 40 mg by mouth twice a day. 05/31/2019 Active verapamil SR (Calan-SR) 180 mg ER tabletIndications :SVT (supraventricular tachycardia),Prim rachel hypertension Take 1 tablet (180 mg) by mouth at bedtime. Do not crush or chew. 90 tablet 3 08/31/2024 09/01/19 26 Active Active Problems Problem Noted Date Diagnosed Date Chronic left-sided low back pain with left-sided sciatica 08/25/2024 Paroxysmal SVT (supraventricular tachycardia) Abnormal EKG 07/08/2023 Chronic pansinusitis 07/08/2023 Dyspepsia 07/08/2023 Elevated blood pressure read ing without diagnosis of hypertension 07/08/2023 Thoracic spine pain 07/08/2023 Essential hypertension 01/19/2020 Ex-smoker 01/19/2020 Palpitations 01/19/2020 Tachycardia 01/19/2020 Encounters Date Type Department Care Team Description 09/08/2024 Telephone [facility] [address] [place] [address] Chrissie Baker MA 08/31/2024 2:45 PM EDT Office Visit [facility] [address] [place] [address] Juan Daniel Cordova MD SVT (supraventricular tachycardia) (Primary Dx); Primary hypertension; Abnormal EKG; SOBIA (obstructive sleep apnea); Other chest pain from Last 3 Months Family History Medical History Relation Name Comments Bradycardia Father Atrial fibrillation Mother Relation Name Status Comments Father Alive Mother Alive Social History Tobacco Use Types Packs/Day Years Used Date Smoking Tobacco: Former Cigarettes Passive Smoke Exposure: Past Smokeless Tobacco: Never Tobacco Cessation:Counseling Given: Not Answered Alcohol Use Standard Drinks/Week Comments Yes 0 (1 standard drink = 0.6 oz pur e alcohol) occasional Sex and Gender Information Value Date Recorded Sex Assigned at Not on file Legal Sex Male 12:18 AM EDT Gender Identity Not on file Sexual Orientation Not on file Last Filed Vital Signs Vital Sign Reading Time Taken Comments Blood Pressure 144/89 08/31/2024 2:34 PM EDT Pulse 60 08/31/2024 2:34 PM EDT Temperature - - Respiratory Rate - - Oxygen Saturation 98% 08/31/2024 2:34 PM EDT Inhaled Oxygen Concentration - - Weight 88.9 kg (196 lb) 08/31/2024 2:34 PM EDT Height 180.3 cm (5' 11 ) 08/31/2024 2:34 PM EDT Body Mass Index 27.34 08/31/2024 2:34 PM EDT Plan of Treatment Upcoming Encounters Date Type Department Care Team (Late st Contact Info) Description 12/07/2024 9:30 AM EDT Office Visit [facility] [address] [place] [address] Juan Daniel Cordova MD [address] [facility] [address] [facility] [place] [address] Health Maintenance Due Date Last Done Comments CT Colonography 1970 FIT-DNA 1970 FIT 1970 FOBT 1970 Sigmoidoscopy 1969 Depression Screening 1981 Hepatitis B Vaccines (1 of 3 - 19+ 3-dose series) 1988 Adult Tetanus 10/27/1991 Zoster Vaccines (1 of 2) 10/27/2019 COVID-19 Vaccine (1 - 2023-2 5 season) 2023 Influenza Vaccine (Season Ended) 2024 Colonoscopy 02/02/2029 02/02/2019 Colorectal Cancer Screening 02/02/2029 HIB Vaccines Aged Out No longer eligi [...] to 64 Years) Aged Out No longer eligi ble based on patient's age to complete this topic Rotavirus Vaccines Aged Out No longer eligible based on patient's age to complete this topic Insurance [employer] [place] [id number] Care Teams Director Of Rotc Relationship Specialty Start Date End Date Henrik Tubbs MD [address] [place] [address] PCP - General Family Medicine 08/31/24
--- OUTSIDE RECORDS SUMMARY | 2024-09-15 07:25 | XMS_ITS | Encounter Summary ---
Author Organization [facility] Address [address] [place] [address] Care Team Providers Care Dairy Husbandry Worker Name Role Phone Henrik Tubbs MD Primary Care Provider [phone] Henrik Tubbs MD Unavailable Encounter Details Date Type Department Care Team (Late st Contact Info) Description 08/19/2024 Orders Only [facility] [address] [place] [phone] Theodore Ambrosio MD [address], [place] [id number] Social History Tobacco Use Types Packs/Day Years [...] week 07/07/2023 How often do you attend alevism or baptism serv ices? Never 07/07/2023 Do you belong to any clubs o r organizations such as alevism groups, unions, fraternal or athletic groups, or [...] Recorded Patient Health Questionnaire-2 Score 0 07/08/2023 [facility] - Occupational Stress [...] to sleep or slept in a senior care (including now)? No 07/07/2023 Sex and Gender [...] on filedocumented in this encounter Care Teams Dairy Husbandry Worker Relationship Specialty Start Date End Date Henrik Tubbs MD [address] [place] [phone] PCP - General Family Medicine 07/08/23 Henrik Tubbs MD [address] [place] [phone] PCP - Medical [employer] 03/18/15 03/17/99 documented as of this encounter
--- OUTSIDE RECORDS SUMMARY | 2024-09-15 07:25 | XMS_ITS | Encounter Summary ---
Author Organization [facility] Address [address] [place] [address] Care Team Providers Care Mosaic Layer Name Role Phone Henrik Tubbs MD Primary Care Provider [phone] Encounter Details Date Type Department Care Team (Late st Contact Info) Description 09/08/2024 Telephone [facility] at [facility] [address] [place] [address] Chrissie Baker MA Social History Tobacco Use Types Packs/Day Years Used Date Smoking Tobacco: Former Cigarettes Passive Smoke Exposure: Past Smokeless Tobacco: Never Alcohol Use Standard Drinks/Week Comments Yes 0 (1 standard drink = 0.6 oz pur e alcohol) occasional Sex and Gender Information Value Date Recorded Sex Assigned at Not on file Legal Sex Male 12:18 AM EDT Gender Identity Not on file Sexual Orientation Not on file documented as of this encounter Miscellaneous Notes * Telephone Encounter - Chrissie Baker MA - 09/08/2024 11:18 AM EDT Phone call from patient. Patient is inquiring about his lab results done on 09/01/2024. Patient is concerned about the TBIL and DBIL being high. Patient would like to know how big of a concern this isand what is the next step. Please advise. Left a voice message for patient advising him of Dr. Cordova's recommendations. documented in this encounter Plan of Treatment Upcoming Encounters Date Type Department Care Team (Late st Contact Info) Description 12/07/2024 9:30 AM EDT Office Visit [facility] [address] [place] [address] Juan Daniel Cordova MD [address] [facility] [address] [facility] [place] [phone] documented as of this encounter Visit Diagnoses Not on filedocumented in this encounter Care Teams Mosaic Layer Relationship Specialty Start Date End Date Henrik Tubbs MD [address] [place] [address] PCP - General Family Medicine 08/31/24 documented as of this encounter
--- OUTSIDE RECORDS SUMMARY | 2024-09-15 07:25 | XMS_ITS | Referral Summary ---
Author Organization [facility] Address [address] [place] [address] Care Team Providers Care Acid Retort Operator Name Role Phone Henrik Tubbs MD Primary Care Provider [phone] Encounters Date Type Department Care Team Description 09/08/2024 Telephone [facility] [address] [place] [address] Chrissie Baker MA 08/31/2024 2:45 PM EDT Office Visit [facility] [address] [place] [address] Juan Daniel Cordova MD SVT (supraventricular tachycardia) (Primary Dx); Primary hypertension; Abnormal EKG; SOBIA (obstructive sleep apnea); Other chest pain from Last 3 Months Allergies No known active allergies Medications omeprazole [...] 01/19/2020 Ex-smoker 01/19/2020 Palpitations 01/19/2020 Tachycardia 01/19/2020 Social History Tobacco Use Types Packs/Day Years [...] Description 12/07/2024 9:30 AM EDT Office Visit [facility] [address] [place] [address] Juan Daniel Cordova MD [address] [facility] 1 [facility] [place] [address] Insurance [employer] Care Teams Acid Retort Operator Relationship Specialty Start Date End Date Henrik Tubbs MD [address] [place] [address] PCP - General Family Medicine 08/31/24
--- OUTSIDE RECORDS SUMMARY | 2024-09-15 07:25 | XMS_ITS | Encounter Summary ---
Author Organization [facility] Address [address] [place] [address] Care Team Providers Care Bridge Tender Name Role Phone Henrik Tubbs MD Primary Care Provider [phone] Henrik Tubbs MD Unavailable Encounter Details Date Type Department Care Team (Late st Contact Info) Description 09/01/2024 Clinisync Result Encounter [facility] External Department Unsolicited Provider, Generic External Data Social History Tobacco Use Types Packs/Day Years [...] week 08/24/2024 How often do you attend confucianism or episcopal serv ices? Never 08/24/2024 Do you belong to any clubs o r organizations such as confucianism groups, unions, fraternal or athletic groups, or [...] Recorded Patient Health Questionnaire-2 Score 0 07/08/2023 [facility] of Occupat ional Health - Occupational [...] place to sleep or slept in a nursing home (including now)? No 07/07/2023 Housing Stability Vital Sign Answer Saul e Recorded In the last 12 months, was t here a time when you were not able to pay the mortgage or rent on time? No 08/24/2024 Number of Times Moved in the Last Year Not on fi le 08/24/2024 At any time in the past 12 m [facility], were you homeless or living in a nursing home (including now)? No 08/24/2024 Sex and Gender Information Value Date Recorded Sex Assigned at Not on file Legal Sex Male 6:58 PM EDT Gender Identity Not on file Sexual Orientation Not on file documented as of this encounter Plan of Treatment Not on file documented as of this encounter Procedures Procedure Name Priority Date/Time Associated Diagnosis Comments [facility] LIVER PANEL Routine 09/01/2024 9:15 AM EDT ALL LIPID PROFILE (FASTING) Routine 09/01/2024 9:15 AM EDT documented in this encounter Results * ALL LIPID PROFILE (FASTING) (09/01/2024 9:15 AM EDT) TRIGLYCERIDES 110 <=150 mg/dL [facility] CHOLESTEROL 165 <=200 mg/dL [facility] HDL CHOLESTEROL 44 40 - 60 mg/dL TB Comment: > or =60 mg/dl - LOW CARDIOVASCULAR RISK <40 mg/dl - HIGH CARDIOVASCULAR RISK LDL CHOLESTEROL CALCULATED 99.0 mg/dL TB Comment: <100 mg/dl OPTIMAL 100-129 mg/dl NEAR OR ABOVE OPTIMAL 130-159 mg/dl BORDERLINE HIGH 160-189 mg/dl HIGH >190 mg/dl VERY HIGH VLDL CHOLESTEROL 22.0 mg/dL TB CHOL HDL RATIO 3.8 TB Comment: 3.3 - 4.4 LOW RISK 4.4 - 7.1 AVERAGE RISK 7.1 - 11.0 MODERATE RISK >11.0 HIGH RISK 09/01/2024 9:15 AM EDT 09/01/2024 9:17 AM EDT Narrative [facility] - 09/01/2024 10:01 AM EDT Generic External Data Provider [facility] F inal Result Performing Organization Address [facility] de Phone Number [facility] * (ABNORMAL) [facility] LIVER PANEL (09/01/2024 9:15 AM EDT) BILIRUBIN TOTAL 1.6(H) 0.2 - 1.0 mg/dL [facility] BILIRUBIN DIRECT 0.3(H) 0.0 - 0.2 mg/dL [facility] ASPARTATE AMINO TRANSFERASE 18 15 - 37 U/L [facility] ALANINE AMINOTRANSFERASE 31 16 - 63 U/L [facility] ALKALINE PHOSPHATASE 72 46 - 116 U/L [facility] TOTAL PROTEIN 6.5 6.4 - 8.2 g/dL [facility] ALBUMIN LEVEL 3.5 3.4 - 5.0 g/dL [facility] GLOBULIN 3.0 g/dL [facility] ALBUMIN GLOBULIN RATIO 1.2 [facility] 09/01/2024 9:15 AM EDT 09/01/2024 9:17 AM EDT Narrative [facility] - 09/01/2024 10:01 AM EDT Generic External Data Provider [facility] F inal Result Performing Organization Address [facility] Co de Phone Number [facility] TB documented in this encounter Visit Diagnoses Not on filedocumented in this encounter Care Teams Bridge Tender Relationship Specialty Start Date End Date Henrik Tubbs MD [address] [place] [phone] PCP - General Family Medicine 07/08/23 Henrik Tubbs MD [address] [place] [phone] PCP - Medical [employer] 03/18/15 03/17/99 documented as of this encounter
--- OUTSIDE RECORDS SUMMARY | 2024-09-15 07:25 | XMS_ITS | Encounter Summary ---
Author Organization [facility] Address [address] [place] [address] Care Team Providers Care Performance Instructor Name Role Phone Henrik Tubbs MD Primary Care Provider [phone] Henrik Tubbs MD Unavailable Encounter Details Date Type Department Care Team (Late st Contact Info) Description 08/25/2024 Results Follow-Up [facility] [address] [place] [address] Henrik Tubbs MD [address] [place] [phone] Social History Tobacco Use Types Packs/Day Years [...] week 08/24/2024 How often do you attend catholic or jain serv ices? Never 08/24/2024 Do you belong to any clubs o r organizations such as catholic groups, unions, fraternal or athletic groups, or [...] Recorded Patient Health Questionnaire-2 Score 0 07/08/2023 [facility] Occupat ional Health - Occupational [...] place to sleep or slept in a chcf (including now)? No 07/07/2023 Housing Stability Vital Sign Answer Saul e Recorded In the last 12 months, was t here a time when you were not able to pay the mortgage or rent on time? No 08/24/2024 Number of Times Moved in the Last Year Not on fi le 08/24/2024 At any time in the past 12 m [facility], were you homeless or living in a chcf (including now)? No 08/24/2024 Sex and Gender Information Value Date Recorded Sex Assigned at Not on file Legal Sex Male 6:58 PM EDT Gender Identity Not on file Sexual Orientation Not on file documented as of this encounter Plan of Treatment Not on file documented as of this encounter Visit Diagnoses Not on filedocumented in this encounter Care Teams Performance Instructor Relationship Specialty Start Date End Date Henrik Tubbs MD [address] [place] [address] PCP - General Family Medicine 07/08/23 Henrik Tubbs MD [address] [place] [address] PCP - Medical [employer] 03/18/15 03/17/99 documented as of this encounter
--- NOTE | 2024-09-15 07:40 | NM_ITS ---
Patient Name: JACKSON BENNETT MR#: [id number] : 1970 Exam Date: 09/15/2024 Ordering Doctor: DR LEON DARBY M.D. RADIOLOGY REPORT PROCEDURE: NM DEMETRICE PERF SPECT REST STR COMPARISON: None. INDICATIONS: CHEST PAIN, TACHYCARDIA TECHNIQUE: Exam Description: Stress/Rest one day protocol gated SPECT Rest Imagin.0 mCi Tc-99m Cardiolite IV on 09/15/2024 Stress Imaging 30.1 mCi Tc-99m Cardiolite IV on 09/15/2024 Exercise Protocol: Jun Heart Rate (bpm): Rest: 55 Max: 157 PMHR: 94 Blood Pressure: Rest: 132/72 Max: 150/84 Exercise Time: Minutes: 9 Seconds: 21 Stage Reached: Stage: 4 Mets 11.2 Symptoms: Rest and peak stress ECG findings were pending and the EKG portion of the study was pending per attending physician [facility] . For more details please see separate cardiac stress test report. FINDINGS: QUALITY OF STUDY: Good PERFUSION DEFECT: None LOCATION: SIZE: SEVERITY: TYPE: WALL MOTION: Normal global LV SIZE: 116 mL. TID / TCD: 1.0 LVEF: Calculated EF 65%. SUMMARY: Normal myocardial perfusion imaging study CONCLUSION: Normal myocardial perfusion stress images without evidence of ischemia or infarction Normal left ventricular systolic function, ejection fraction 65% No transient ischemic dilatation, TID 1.0 EKG portion of stress test is reported separately Dictated by: Gila Ordaz MD on 09/15/2024 at 13:51 Approved by: Gila Ordaz MD on 09/15/2024 at 13:55
--- NOTE | 2024-09-15 09:38 | PC.NURSE ---
Nursing Note Cardiac Stress Test Reviewed: Medication, allergies and patient history reviewed. Stress Test: [x ] Patient tolerated stress test well. [ ] Patient unable to tolerate walking on treadmill. Switched to Lexiscan stress test. [x ] No chest pain noted per patient [ ] Chest pain that resolved prior to leaving stress lab. [ ] No dyspnea noted. [x ] Dyspnea that resolved prior to leaving stress lab. [x ] Patient left stress lab asymptomatic and hemodynamically stable. [ ] Patient taken to the Emergency Room due to non-resolving symptoms following stress test. [x ] Patient achieved target heart rate. [ ] Patient unable to achieve target heart rate. [ ] Aminophylline administered as reversal agent to Lexiscan (Regadenoson). [ ] Nitro administered. Nursing Comments:Pt had Cardiolite test done. No CP but had SOB which he states is normal for him with activity. Pt did not have any episodes like he did that brought him to the ER a while back. Pt ambulated to cafeteria for breakfast prior to second set of images and was asymptomatic.
== END 2024-09-15 07:24 | disposition home or self-care (01) ==
LOC: NM 07:24
PROVIDERS: PCP Family Medicine; Visit Provider Internal Medicine Interventional Cardiology
DX: R07.89 Other chest pain (principal)
CPT/HCPCS: 78452; 93017; A9500

== ENCOUNTER 2024-09-23 08:47 | Outpatient (OUT) | payer OTHER, SELFPAY ==
--- NOTE | 2024-09-16 19:16 | P.STRESS_ITS ---
Stress Test Stress Test Allergies Allergy/AdvReac Type Severity Reaction Status Date / Time No Known Drug Allergies Allergy Verified 08/19/24 11:32 Requesting physician: LEON DARBY Procedure: Treadmill stress nuclear test General Information: Reason for Stress Test: [Chest pain and tachycardia] Cardiac History and Risk Factors: [Hypertension age and gender] Resting 12 - Lead Electrocardiogram: Sting twelve-lead EKG showed sinus bradycardia, heart rate 51 bpm possible old inferior infarct, no significant T or ST changes. Resting heart rate 55 bpm, resting blood pressure 132/72 mmHg. The patient was exercised according to standard Jun protocol and he was able to finish 9 minutes and 21 seconds of exercise consistent with stage IV and 11.2 METS and achieving max heart rate of 157 bpm which represents 94% of age- predicted maximum heart rate and peak blood pressure of 150/84 mmHg. Exercise was terminated secondary to achievement of target heart rate and fatigue. The patient did not experience any chest, neck, jaw, or arm discomfort. He had some shortness of breath at peak exercise. The patient was monitored for a total of 8 minutes into recovery phase with heart rate back to 77 bpm and blood pressure to 136/80 mmHg. EKG during and at peak exercise showed horizontal ST depression up to about 3 mm in anterolateral leads which resolved quickly within the first minute in the recovery phase, but about 3 minutes into recovery phase he started again to develop downsloping ST depression but it remained below 1 mm Stress Test: Protocol: [Jun] Exercise Capacity: [Good] Blood Pressure Response: [Normal] Rhythm: [Sinus, no arrhythmia] ST - Response: [ST depression horizontal] Patient Response: [Normal] Interpretation: Maximal stress test achieving 94% of age-predicted maximum heart rate Good exercise tolerance Normal heart rate and blood pressure response to exercise The stress test is positive for exercise-induced ischemic EKG changes however there was no ischemic symptoms or arrhythmias The nuclear myocardial perfusion images result is reported separately Trinity Ordaz MD [facility]
--- OUTSIDE RECORDS SUMMARY | 2024-09-23 08:49 | XMS_ITS | Encounter Summary ---
Author Organization [facility] Address [address] [place] [address] Care Team Providers Care Loss Prevention Consultant Name Role Phone Henrik Tubbs MD Primary Care Provider [phone] Henrik Tubbs MD Unavailable Encounter Details Date Type Department Care Team (Late st Contact Info) Description 08/25/2024 Results Follow-Up [facility] [address] [place] [address] Henrik Tubbs MD [address] [place] [phone] Social History Tobacco Use Types Packs/Day Years [...] week 08/24/2024 How often do you attend rastafari or protestant serv ices? Never 08/24/2024 Do you belong to any clubs o r organizations such as rastafari groups, unions, fraternal or athletic groups, or [...] Recorded Patient Health Questionnaire-2 Score 0 07/08/2023 [facility] - Occupational [...] place to sleep or slept in a residential (including now)? No 07/07/2023 Housing Stability Vital Sign Answer Saul e Recorded In the last 12 months, was t here a time when you were not able to pay the mortgage or rent on time? No 08/24/2024 Number of Times Moved in the Last Year Not on fi le 08/24/2024 At any time in the past 12 m [facility], were you homeless or living in a residential (including now)? No 08/24/2024 Sex and Gender Information Value Date Recorded Sex Assigned at Not on file Legal Sex Male 6:58 PM EDT Gender Identity Not on file Sexual Orientation Not on file documented as of this encounter Plan of Treatment Not on file documented as of this encounter Visit Diagnoses Not on filedocumented in this encounter Care Teams Loss Prevention Consultant Relationship Specialty Start Date End Date Henrik Tubbs MD [address] [place] [address] PCP - General Family Medicine 07/08/23 Henrik Tubbs MD [address] [place] [address] PCP - Medical [employer] 03/18/15 03/17/99 documented as of this encounter
--- OUTSIDE RECORDS SUMMARY | 2024-09-23 08:49 | XMS_ITS | Clinical Summary ---
Author Organization [employer] s tem Address [id number] [address] 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 Patient Name: Charlie Saldana Procedure Date No Time: 02/02/2019 CSN : [id number] Date of : 1970 Admit Type: Outpatient Age: 48 Room: [place] [address] Gender: Male Note Status: Finalized Attending MD: [...] were monitored continuously. The OLYMPUS CF-190L # [id number] ADULT COLONOSCOPE was introduced through the anus [...] 1 week. Procedure Code(s): --- Professional --- 46666, Colonoscopy, flexible; with ablation of tumor(s), polyp(s), or other lesion(s) (includes pre- and post-dilation and guide wire passage, when performed) 98251, 59, Colonoscopy, flexible; with removal of tumor(s), [...] or abscess without bleeding CPT copyright 2018 [employer]. All rights reserved. The codes documented in this report are preliminary and upon government employee review may be revised to meet current compliance requirements. DO Chad Ruiz DO 02/02/2019 9:54:12 AM Number of Addenda: 0 Note Initiated On: 02/02/2019 9:27 AM Procedure Note Chad Krishnamurthy DO - 02/02/2019 [facility] Patient Name: Charlie Saldana Procedure Date No Time: 02/02/2019 CSN : [id number] Date of : 1970 Admit Type: Outpatient Age: 48 Room: [place] [address] Gender: Male Note Status: Finalized Attending MD: Chad Krishnamurthy DO Procedure: Colonoscopy Indications: Abdominal pain in the left lower quadrant, Rectal bleeding Providers: Chad Krishnamurthy DO Medicines: Propofol per Anesthesia Complications: No immediate complications. Procedure: After I obtained informed consent, the scope waspassed under direct vision. Throughout the procedure, the patient's blood pressure, pulse, and oxygensaturations were monitored continuously. The OLYMPUS CF-190L # [id number] ADULT COLONOSCOPE was introduced through the anus [...] 1 week. Procedure Code(s): --- Professional --- 43211, Colonoscopy, flexible; with ablation of tumor(s), polyp(s), or other lesion(s) (includespre- and post-dilation and guide wire passage, when performed) 98689, 59, Colonoscopy, flexible; with removal of tumor(s), polyp(s), or other lesion(s) by snare technique Diagnosis Code(s): --- Professional --- K62.1, Rectal polyp D12.3, Benign neoplasm of transverse colon (hepatic flexure orsplenic flexure) D12.2, Benign neoplasm of ascending colon R10.32, Left lower quadrant pain K62.5, Hemorrhage of anus and rectum K57.30, Diverticulosis of large intestine without perforation orabscess without bleeding CPT copyright 2018 [employer]. All rights reserved. The codes documented in this report are preliminary and upon government employee reviewmay be revised to meet current compliance requirements. 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 [address] PCP - General Nurse Practitioner 12/22/18
--- OUTSIDE RECORDS SUMMARY | 2024-09-23 08:49 | XMS_ITS | Encounter Summary ---
Author Organization [facility] Address [address] [place] [address] Care Team Providers Care Stock Raiser Name Role Phone Henrik Tubbs MD Primary Care Provider [phone] Encounter Details Date Type Department Care Team (Late st Contact Info) Description 09/08/2024 Telephone [facility] [address] [place] [address] Chrissie Baker MA Social History [...] Description 12/07/2024 9:30 AM EDT Office Visit [facility] [address] [place] [phone] Juan Daniel Cordova MD [address] [facility] [address] [place] [phone] documented as of this encounter Visit Diagnoses Not on filedocumented in this encounter Care Teams Stock Raiser Relationship Specialty Start Date End Date Henrik Tubbs MD [address] [place] [address] PCP - General Family Medicine 08/31/24 documented as of this encounter
--- OUTSIDE RECORDS SUMMARY | 2024-09-23 08:49 | XMS_ITS | Encounter Summary ---
Author Organization [facility] Address [address] [place] [address] Care Team Providers Care Bottom Sprayer Name Role Phone Henrik Tubbs MD Primary Care Provider [phone] Henrik Tubbs MD Unavailable Encounter Details Date Type Department Care Team (Late st Contact Info) Description 09/15/2024 Clinisync Result Encounter [facility] External Department Unsolicited [...] week 08/24/2024 How often do you attend sikhism or amish serv ices? Never 08/24/2024 Do you belong to any clubs o r organizations such as sikhism groups, unions, fraternal or athletic groups, or [...] Recorded Patient Health Questionnaire-2 Score 0 07/08/2023 [facility] Occupat ional Health - Occupational [...] place to sleep or slept in a jail (including now)? No 07/07/2023 Housing Stability Vital Sign Answer Saul e Recorded In the last 12 months, was t here a time when you were not able to pay the mortgage or rent on time? No 08/24/2024 Number of Times Moved in the Last Year Not on fi le 08/24/2024 At any time in the past 12 m [facility], were you homeless or living in a jail (including now)? No 08/24/2024 Sex and Gender Information Value Date Recorded Sex Assigned at Not on file Legal Sex Male 6:58 PM EDT Gender Identity Not on file Sexual Orientation Not on file documented as of this encounter Plan of Treatment Not on file documented as of this encounter Procedures Procedure Name Priority Date/Time Associated Diagnosis Comments NM DEMETRICE PERF SPECT REST STR 09/15/2024 1:55 PM EDT documented in this encounter Results * NM DEMETRICE PERF SPECT REST STR (09/15/2024 1:55 PM EDT) Anatomical Region Laterality Modality Other 09/15/2024 1:55 PM EDT Narrative 09/15/2024 1:56 [place] [address] Nuclear Medicine Report Signed Patient: JACKSON SALDANA MR#: [id number] : 1970 Acct:[id number] Age/Sex: 53 / M ADM Date: 09/15/24 Loc: [place] Attending Dr: LEON DARBY Ordering Physician: LEON DARBY Date of Service: 09/15/24 Procedure(s): NM demetrice perf SPECT rest str Accession Number(s): [id number] cc: LEON DARBY; Henrik Tubbs M.D. Patient Name: JACKSON SALDANA MR#: [id number] : 1970 Exam Date: 09/15/2024 Ordering Doctor: DR LEON DARBY M.D. RADIOLOGY REPORT PROCEDURE: NM DEMETRICE PERF SPECT REST STR COMPARISON: None. INDICATIONS: CHEST PAIN, TACHYCARDIA TECHNIQUE: Exam Description: Stress/Rest one day protocol gated SPECT Rest Imagin.0 mCi Tc-99m Cardiolite IV on 09/15/2024 Stress Imaging 30.1 mCi Tc-99m Cardiolite IV on 09/15/2024 Exercise Protocol: Jun Heart Rate (bpm): Rest: 55 Max: 157 PMHR: 94 Blood Pressure: Rest: 132/72 Max: 150/84 Exercise Time: Minutes: 9 Seconds: 21 Stage Reached: Stage: 4 Mets 11.2 Symptoms: Rest and peak stress ECG findings were pending and the EKG portion of the study was pending per attending physician [facility] . For more details please see separate cardiac stress test report. FINDINGS: QUALITY OF STUDY: Good PERFUSION DEFECT: None LOCATION: SIZE: SEVERITY: TYPE: WALL MOTION: Normal global LV SIZE: 116 mL. TID / TCD: 1.0 LVEF: Calculated EF 65%. SUMMARY: Normal myocardial perfusion imaging study CONCLUSION: Normal myocardial perfusion stress images without evidence of ischemia or infarction Normal left ventricular systolic function, ejection fraction 65% No transient ischemic dilatation, TID 1.0 EKG portion of stress test is reported separately Dictated by: Gila Ordaz MD on 09/15/2024 at 13:51 Approved by: Gila Ordaz MD on 09/15/2024 at 13:55 Dictated By: Gila Ordaz M.D. Signed By: 09/15/24 1356 DD/ 1359 TD/TT: Title Coordinator: Procedure Note Radiology, Radiologist, MD - 09/15/2024 [place] [address] Nuclear Medicine Report Signed Patient: JACKSON SALDANA DMR#: [id number] : 1970Acct:[id number] Age/Sex: 53 / MADM Date: 09/15/24 Loc: [place] Attending Dr: LEON DARBY Ordering Physician: LEON DARBY Date of Service: 09/15/24 Procedure(s): NM demetrice perf SPECT rest str Accession Number(s): [id number] cc: LEON DARBY; Henrik Tubbs M.D. Patient Name: JACKSON SALDANA MR#: [id number] : 1970 Exam Date: 09/15/2024 Ordering Doctor: DR LEON DARBY M.D. RADIOLOGY REPORT PROCEDURE: NM DEMETRICE PERF SPECT REST STR COMPARISON: None. INDICATIONS: CHEST PAIN, TACHYCARDIA TECHNIQUE: Exam Description: Stress/Rest one day protocol gated SPECT Rest Imagin.0 mCi Tc-99m Cardiolite IV on 09/15/2024 Stress Imaging 30.1 mCi Tc-99m Cardiolite IV on 09/15/2024 Exercise Protocol: Jun Heart Rate (bpm): Rest: 55 Max: 157 PMHR: 94 Blood Pressure: Rest: 132/72 Max: 150/84 Exercise Time: Minutes: 9 Seconds: 21 Stage Reached: Stage: 4 Mets 11.2 Symptoms: Rest and peak stress ECG findings were pending and the EKG portion of the study was pending per attending physician [facility] . For more details pleasesee separate cardiac stress test report. FINDINGS: QUALITY OF STUDY: Good PERFUSION DEFECT: None LOCATION: SIZE: SEVERITY: TYPE: WALL MOTION: Normal global LV SIZE: 116 mL. TID / TCD: 1.0 LVEF: Calculated EF 65%. SUMMARY: Normal myocardial perfusion imaging study CONCLUSION: Normal myocardial perfusion stress images without evidence of ischemia or infarction Normal left ventricular systolic function, ejection fraction 65% No transient ischemic dilatation, TID 1.0 EKG portion of stress test is reported separately Dictated by: Gila Ordaz MD on 09/15/2024 at 13:51 Approved by: Gila Ordaz MD on 09/15/2024 at 13:55 Dictated By: Gila Ordaz M.D. Signed By:09/15/24 1356 DD/ 1355 TD/TT: Title Coordinator: us Generic External Data Provider [facility] Final Result documented in this encounter Visit Diagnoses Not on filedocumented in this encounter Care Teams Bottom Sprayer Relationship Specialty Start Date End Date Henrik Tubbs MD [address] [place] [phone] PCP - General Family Medicine 07/08/23 Henrik Tubbs MD [address] [place] [address] PCP - Medical [place] [employer] 03/18/15 03/17/99 documented as of this encounter
--- OUTSIDE RECORDS SUMMARY | 2024-09-23 08:49 | XMS_ITS | Clinical Summary ---
Author Organization [facility] Address [address] [place] [address] Care Team Providers Care Automatic Dry Starch Operator Name Role Phone Henrik Tubbs MD Primary Care Provider [phone] Allergies No known active allergies Medications omeprazole [...] Type Department Care Team Description 09/08/2024 Telephone [facility] [address] [place] [address] Chrissie Baker MA 08/31/2024 2:45 PM EDT Office Visit [facility] [address] [place] [address] Juan Daniel Cordova MD SVT (supraventricular tachycardia) [...] Description 12/07/2024 9:30 AM EDT Office Visit [facility] at [facility] [address] [place] [address] Juan Daniel Cordova MD [address] [facility] [address] [facility] [place] [address] Health Maintenance Due Date Last Done Comments CT Colonography 1970 FIT-DNA 1970 FIT 1970 FOBT 1970 Sigmoidoscopy 1969 Depression Screening 1981 Hepatitis B Vaccines (1 of 3 - 19+ 3-dose series) 1988 Adult Tetanus 10/27/1991 Zoster Vaccines (1 of 2) 10/27/2019 COVID-19 Vaccine (1 - 2023-2 5 season) 2023 Influenza Vaccine (#1) 2024 Colonoscopy 02/02/2029 02/02/2019 Colorectal Cancer Screening [...] to complete this topic Insurance [employer] [place] [id number] Care Teams Automatic Dry Starch Operator Relationship Specialty Start Date End Date Henrik Tubbs MD [address] [place] [address] PCP - General Family Medicine 08/31/24
--- OUTSIDE RECORDS SUMMARY | 2024-09-23 08:49 | XMS_ITS | Encounter Summary ---
Author Organization [facility] Address [address] [place] [address] Care Team Providers Care School Boat Driver Name Role Phone Henrik Tubbs MD Primary Care Provider [phone] Henrik Tubbs MD Unavailable Encounter Details Date Type Department Care Team (Late st Contact Info) Description 08/19/2024 Orders Only [facility] [address] [place] [phone] Theodore Ambrosio MD [address] [place], [place] [phone] Social History Tobacco Use Types Packs/Day Years [...] week 07/07/2023 How often do you attend oriental orthodox or hoahaoism serv ices? Never 07/07/2023 Do you belong to any clubs o r organizations such as oriental orthodox groups, unions, fraternal or athletic groups, or [...] Recorded Patient Health Questionnaire-2 Score 0 07/08/2023 [facility] Occupat ional Health - Occupational Stress [...] place to sleep or slept in a retirement (including now)? No 07/07/2023 Sex and Gender [...] on filedocumented in this encounter Care Teams School Boat Driver Relationship Specialty Start Date End Date Henrik Tubbs MD [address] [place] [phone] PCP - General Family Medicine 07/08/23 Henrik Tubbs MD [address] [place] [phone] PCP - Medical [place] [employer] 03/18/15 03/17/99 documented as of this encounter
--- NOTE | 2024-09-23 09:00 | CA_ITS ---
Patient Name: JACKSON BENNETT MR#: [id number] : 1970 Exam Date: 09/23/2024 Ordering Doctor: DR LEON DARBY M.D. ECHOCARDIOGRAM REPORT PROCEDURE: CA ECHO DOPPLER COMPLETE INDICATIONS: Abnormal ECG, SVT (supraventricular tachycardia) COMPARISON: None. DESCRIPTION: COMPLETE ECHOCARDIOGRAM Real-time transthoracic echocardiography with 2D, M-mode, spectral and color flow Doppler performed. QUALITY: Technical quality was good. LEFT VENTRICLE: Normal chamber size. Proximal septal hypertrophy (sigmoid septum). LV EF: Global left ventricular systolic function is normal; visually estimated ejection fraction is 55 to 60%. No significant wall motion abnormalities. DIASTOLIC: Diastolic function is indeterminate. ATRIAL SEPTUM: Visually appears intact. LEFT ATRIUM: Moderate dilatation. RIGHT ATRIUM: Normal chamber size. RIGHT VENTRICLE: Normal chamber size. Normal right ventricular systolic function. TRICUSPID VALVE: Normal mobility and thickness. No stenosis with mild regurgitation. Doppler studies reveal mildly (35-45) elevated right sided pressures. RVSP 42 mmHg MITRAL VALVE: Normal mobility and thickness. No evidence of mitral valve stenosis. There is no mitral annular calcification. Mild mitral regurgitation. AORTIC VALVE: Normal trileaflet appearance. No visible sclerosis. Normal leaflet mobility. No evidence of aortic valve stenosis. No aortic regurgitation. AORTIC ROOT: Normal diameter and appearance. Ascending aorta is normal in size. PULMONIC VALVE: Normal thickness and mobility. No stenosis. Mild regurgitation. PERICARDIUM: No evidence of pericardial effusion. IVC: IVC is dilated (2.4 cm), does not collapse. CONCLUSION: 1. Global left ventricular systolic function is normal; visually estimated ejection fraction is 55 to 60% 2. Normal right ventricular size and systolic function 3. The left atrium is moderately dilated 4. Diastolic function is indeterminate 5. Mild tricuspid regurgitation 6. Mildly elevated right ventricular systolic pressure; RVSP 42 mmHg 7. Mild mitral regurgitation 8. Mild pulmonic regurgitation Adult Echocardiography Procedure Report Left Ventricle LVEDD (3.7 - 5.6 cm): 5.43 cm LVESD (2.2 - 4.0 cm): 3.79 cm LVIVS thickness (0.6 - 1.2 cm): 1.35 cm LVPW thickness (0.5 - 1.0 cm): 0.99 cm e': 0.12 m/s E - e': 4.88 LVOT Max Gradient: 4.83 mm[Hg] LVOT Area (cm2): 1.10 m/s Peak Velocity (LVOT): 1.10 m/s Mean Velocity (LVOT): 0.75 m/s LVOT Diameter 2.44 cm Left Ventricular Ejection Fraction: 61.66 % Left Atrium LA Volume Index (2D A2C): 43.72 ml/m2 Left Atrium Systolic Dimension: 4.08 cm Mitral Valve MV E to A Ratio: 1.75 Mitral Valve A-Wave Peak Velocity: 0.33 m/s Mitral Valve E-Wave Peak Velocity: 0.57 m/s Right Ventricle Aorta AO Root Diam: 3.70 cm Ascending Ao Diam: 3.30 cm Aortic Valve AoV Area (Peak Ej): 4.25 cm2, 4.25 cm2 AoV Area (VTI): 4.22 cm2, 4.22 cm2 Peak Velocity(Antegrade Flow): 1.21 m/s Peak Gradient(Antegrade Flow): 5.83 mm[Hg] Mean Velocity(Antegrade Flow): 0.77 m/s Mean Gradient(Antegrade Flow): 2.82 mm[Hg] Velocity Time Integral: 28.66 cm Tricuspid Valve Peak Velocity (Regurgitant Flow): 2.82 m/s, 3.05 m/s Pulmonic Valve Peak Gradient: 2.97 mm[Hg], 2.61 mm[Hg] Right Atrium Right Atrium Systolic Pressure: 50.58 ml, 50.58 ml Dictated by: Chinedu Saucedo M.D. on 09/24/2024 at 16:21 Approved by: Chinedu Saucedo M.D. on 09/24/2024 at 16:27
== END 2024-09-23 08:48 | disposition home or self-care (01) ==
LOC: CARD 08:48
PROVIDERS: PCP Family Medicine; Visit Provider Internal Medicine Interventional Cardiology
DX: I47.10 Supraventricular tachycardia, unspecified (principal); R94.31 Abnormal electrocardiogram [ECG] [EKG]
CPT/HCPCS: 93306

== ENCOUNTER 2024-12-07 10:26 | Outpatient (OUT) | payer OTHER, SELFPAY ==
--- OUTSIDE RECORDS SUMMARY | 2024-12-07 09:30 | XMS_ITS | Encounter Summary ---
Author Organization [facility] Address [address] [place] [address] Care Team Providers Care Rn Urology Name Role Phone Henrik Tubbs MD Primary Care Provider [phone] Reason for Referral * Consultation (Routine) - Pending Review Specialty Diagnoses / Procedures Referred By Aura dsouza Referred To Contact Cardiology Diagnoses SVT (supraventricular tachycardia) Procedures CO OFFICE/OUTPATIENT [facility] 60 MINUTES Juan Daniel Cordova MD [address] [place] [address] Phone: tel: fax: Fabián Sanches MD [address] [place] [address] Phone: tel: fax: Referral ID Status Reason Start Date Expiration Date Visits Requested Visits Authorized [id number] Pending Review Specialty Services Required 12/07/2024 12/07/2025 1 1 Encounter Details Date Type Department Care Team (Late st Contact Info) Description 12/07/2024 9:30 AM EDT Office Visit [facility] [place] [address] [place] [address] Juan Daniel Cordova MD [address] [place] [address] SVT (supraventricular tachycardia) (Primary Dx); Primary hypertension; SOBIA (obstructive sleep apnea); Pulmonary hypertension (CMS/HCC); Elevated bilirubin Social History Tobacco Use Types Packs/Day Years Used Date Smoking Tobacco: Former Cigarettes Passive Smoke Exposure: Past Smokeless Tobacco: Never Alcohol Use Standard Drinks/Week Comments Yes 0 (1 standard drink = 0.6 oz pur e alcohol) occasional Sex and Gender Information Value Date Recorded Sex Assigned at Male 12/04/2024 9:14 AM EDT Legal Sex Male 12:18 AM EDT Gender Identity Male 12/04/2024 9:14 AM EDT Sexual Orientation Heterosexual or Straight 11/16 9:14 AM EDT documented as of this encounter Last Filed Vital Signs Vital Sign Reading Time Taken Comments Blood Pressure 141/81 12/07/2024 9:27 AM EDT Pulse 55 12/07/2024 9:27 AM EDT Temperature - - Respiratory Rate - - Oxygen Saturation 96% 12/07/2024 9:27 AM EDT Inhaled Oxygen Concentration - - Weight 88.5 kg (195 lb) 12/07/2024 9:27 AM EDT Height 180.3 cm (5' 11 ) 12/07/2024 9:27 AM EDT Body Mass Index 27.2 12/07/2024 9:27 AM EDT documented in this encounter Progress Notes * Juan Daniel Cordova MD - 12/07/2024 9:30 AM EDT Images from the original note were not included. [facility] Subjective Charlie Saldana is a 54 y.o. year old male patient being seen today for a 3 month follow up. Patient had recent Echo, stress test and labs. Patient states he is doing well. Patient denies SOB, ABDULLAHI, legswelling, bleeding, chest pain, or palpitations/racing heart. Patient Active Problem List Diagnosis Abnormal EKG Chronic left-sided low back pain with left-sided sciatica Chronic pansinusitis Dyspepsia Elevated blood pressure reading without diagnosis of hypertension Essential hypertension Ex-smoker Palpitations Paroxysmal SVT (supraventricular tachycardia) Tachycardia Thoracic spine pain Family History Problem Relation Name Age of Onset Atrial fibrillation Mother Bradycardia Father Social History Tobacco Use Smoking status: Former Types: Cigarettes Passive exposure: Past Smokeless tobacco: Never Substance Use Topics Alcohol use: Yes Comment: occasional Drug use: Never HPI Initial visit 08/31/2024: Charlie is seen as a new patient. I had seen him in the past last visit on 12/15/2018. He has prior history of hypertension and obstructive sleep apnea on CPAP. In the past he was investigated for apical chest pain and stress echocardiogram was normal. On 08/19/2024 he presented to the emergency department with tachycardia and was found to have SVT on ECG. He was given adenosine 12 mg that converted him to sinus rhythm. His blood testing was negative. He was discharged home. He currently is on omeprazole only. He reports that before this event of August 2024 he was having irregular heartbeat and palpitations on and off. In addition he is complaining of symptoms of chest pain localized to the left side of thechest radiating to the back. Those happen without any particular inciting factor. They last from short period to long period of time and resolve spontaneously. He denies chest pain and leg edema. Follow-up visit 12/07/2024: He is seen in follow-up. At last visit I started him on verapamil 180 mg once daily due to SVT. To investigate his chest pain I checked treadmill stress test and an echocardiogram and started him on aspirin 81 mg daily. Today he reports that he has been doing well without symptoms of chest pain or shortness of breath.He has had no palpitations. Review of Systems Musculoskeletal: Positive for back pain. Neurological: Positive for light-headedness. Objective Visit Vitals BP 141/81 (BP Location: Right arm, Patient Position: Sitting) Pulse 55 Ht 1.803 m (5' 11 ) Wt 88.5 kg (195 lb) SpO2 96% BMI 27.20 kg/m?? Smoking Status Former BSA 2.11 m?? Physical Exam Constitutional: Appearance: He is well-developed. He is not ill-appearing. HENT: Head: Normocephalic and atraumatic. Nose: Nose normal. Eyes: General: No scleral icterus. Pupils: Pupils are equal, round, and reactive to light. Neck: Thyroid: No thyromegaly. Vascular: No JVD. Cardiovascular: Rate and Rhythm: Normal rate and regular rhythm. Pulses: Radial pulses are 2+ on the right side and 2+ on the left side. Heart sounds: Normal heart sounds. No murmur heard. No friction rub. No gallop. Pulmonary: Effort: Pulmonary effort is normal. No respiratory distress. Breath sounds: Normal breath sounds. No wheezing or rales. Chest: Chest wall: No tenderness. Abdominal: General: Bowel sounds are normal. There is no distension. Palpations: Abdomen is soft. Tenderness: There is no abdominal tenderness. Musculoskeletal: General: No swelling. Cervical back: Neck supple. Skin: General: Skin is warm and dry. Neurological: General: No focal deficit present. Mental Status: He is alert and oriented to person, place, and time. Psychiatric: Mood and Affect: Mood normal. Behavior: Behavior is cooperative. Judgment: Judgment normal. Allergies No Known Allergies Medications Current Outpatient Medications: aspirin 81 mg EC tablet, Take 81 mg by mouth in the morning., Disp: , Rfl: omeprazole (PriLOSEC) [address] capsule, Take 40 mg by mouth twice a day. (Patient taking differently: Take 20 mg by mouth before breakfast.), Disp: , Rfl: verapamil SR (Calan-SR) 180 mg ER tablet, Take 1 tablet (180 mg) by mouth at bedtime. Do not crush or chew., Disp: 90 tablet, Rfl: 3 losartan (Cozaar) 25 mg tablet, Take 1 tablet (25 mg) by mouth in the morning., Disp: 90 tablet, Rfl: 3 Recent Labs Blood testing 08/19/2024: Hemoglobin 18, platelets 175, potassium 3.7, BUN 16, creatinine 1.33, EGFR 56, troponin I high-sensitivity 11.7. Blood testing 09/01/2024: Bilirubin 1.6, direct bilirubin 0.3, AST, ALT, ALP normal, total protein, albumin, globulin normal. Triglycerides 110, cholesterol 165, HDL 44, LDL 99. Imaging and other tests Echocardiogram 09/23/2024: CONCLUSION: 1. Global left ventricular systolic function is normal; visually estimated ejection fraction is 55 to 60% 2. Normal right ventricular size and systolic function 3. The left atrium is moderately dilated 4. Diastolic function is indeterminate 5. Mild tricuspid regurgitation 6. Mildly elevated right ventricular systolic pressure; RVSP 42 mmHg 7. Mild mitral regurgitation 8. Mild pulmonic regurgitation Stress test 09/15/2024: CONCLUSION: Normal myocardial perfusion stress images without evidence of ischemia or infarction Normal left ventricular systolic function, ejection fraction 65% No transient ischemic dilatation, TID 1.0 EKG portion of stress test is reported separately EKG portion: Jun protocol 9 minutes and 21 seconds, stage IV, 11.2 METS. Maximal stress test achieving 94% of age predicted maximal heart rate. good exercise tolerance. Normal heart rate and blood pressure response to exercise. The stress test is positive for exercise-induced ischemic EKG changes however there was no ischemic symptoms or arrhythmias. The nuclear myocardial perfusion images result is reported separately. ECG 08/19/2024: Sinus rhythm, moderate ST depression, abnormal ECG. ECG 08/19/2024: Supraventricular tachycardia, ST segment depression, consider subendocardial ischemia, moderate left axis deviation. Abnormal ECG. Stress echocardiogram 11/20/2018: Stress Echo Conclusions - At rest, no wall motion abnormalities - With stress, no ischemia-induced wall motion abnormalities - Assessment: poor quality study, however, no ischemia-induced wall motionabnormalities were seen (negative stress echo test) - At rest, normal global systolic LV-function (EF 65%) - With stress, increased contractility (increased EF of 80%) - In the recovery phase, returnto baseline contractility (EF 65%) - Assessment: normal LV function Stress ECG Conclusions - Overall interpretation: Equivocal ECG changes . The patient excercised for10:30 minutes and borderline downsloping ST depression of 1-1.1 mm developed in V4-V6 at the end ofthe recovery. - The Garrido Treadmill Score is +5.5 - Low risk of cardiovascular event - Appropriate heart rate response - Normal resting BP - appropriate response - protocol - Sinus bradycardia - ST changes during the stress: ST downsloping depression - Arrhythmias: None seen - Functional capacity isexcellent (S - 21%) Assessment/Plan Diagnoses and all orders for this visit: SVT (supraventricular tachycardia) - Ambulatory referral to Cardiac Electrophysiology; Future Primary hypertension - Basic metabolic panel; Future - losartan (Cozaar) 25 mg tablet; Take 1 tablet (25 mg) by mouth in the morning. SOBIA (obstructive sleep apnea) Pulmonary hypertension (CMS/HCC) Elevated bilirubin 1. SVT: An episode in August 2024 hat caused him to go to the emergency room requiring adenosine to break. He has done reasonably well on verapamil 180 mg once daily. He reports some mild side effects with verapamil. I am going to refer him to Dr. Fabián Myron from electrophysiology to discuss ablation of SVT. Meanwhile continue verapamil. 2. Prior chest pain: I reviewed with him the results of the treadmill exercise stress test that showed no ischemia by myocardial perfusion imaging. He did well on the treadmill without symptoms. He did however have some nonspecific ST changes. I reassured him. Continue aspirin 81 mg daily. 3. Hypertension: Elevated blood pressure. I am going to add losartan 25 mg once daily. I will checka BMP today to follow-up on renal function as it was slightly abnormal at the time of his initial presentation for SVT. 4. Elevated bilirubin on his recent blood testing. I told him that this should be discussed with his primary care physician Charlie Tubbs. 5. Obstructive sleep apnea: I told him that it is imperative to be compliant with CPAP therapy especially given the recent echocardiogram findings of mild pulmonary hypertension that is likely related to his sleep apnea. I will plan on seeing him in follow-up in 1 year. Follow up in about 1 year (around 12/07/2025). Juan Daniel Cordova MD documented in this encounter Plan of Treatment Upcoming Encounters Date Type Department Care Team (Late st Contact Info) Description 01/12/2025 11:45 AM EDT Office Visit [facility] [address] [place] [address] Fabián Sanches MD [address] [place] [id number] Scheduled Orders Name Type Priority Associated Diagnoses Orde r Schedule Basic metabolic panel Lab Routine Primary hypertension Expected: 12/07/2024 (Approximate), Expires: 12/07/2025 Scheduled Referrals Name Type Priority Associated Diagnoses Order Schedule Ambulatory referral to Cardiac Electrophysiology Outpatient Referral Routine SVT (supraventricular tachycardia) Expected: 12/07/2024 (Approximate), Expires: 06/06/2025 documented as of this encounter Visit Diagnoses Diagnosis SVT (supraventricular tachycardia)- Primary Other specified cardiac dysrhythmias Primary hypertension Unspecified essential hypertension SOBIA (obstructive sleep apnea) Obstructive sleep apnea (adult) (pediatric) Pulmonary hypertension (CMS/HCC) Other chronic pulmonary heart diseases Elevated bilirubin documented in this encounter Care Teams Rn Urology Relationship Specialty Start Date End Date Henrik Tubbs MD [address] [place] [address] PCP - General Family Medicine 08/31/24 documented as of this encounter
--- OUTSIDE RECORDS SUMMARY | 2024-12-07 10:30 | XMS_ITS | Encounter Summary ---
Author Organization [facility] Address [address] [place] [address] Care Team Providers Care Senior Merchandiser Name Role Phone Henrik Tubbs MD Primary Care Provider [phone] Henrik Tubbs MD Unavailable Encounter Details Date Type Department Care Team (Late st Contact Info) Description 08/19/2024 Orders Only [facility] [address] [place] [address] Theodore Ambrosio MD [address] [place] [address] Social History Tobacco Use Types Packs/Day Years [...] week 07/07/2023 How often do you attend cheondoism or spiritism serv ices? Never 07/07/2023 Do you belong to any clubs o r organizations such as cheondoism groups, unions, fraternal or athletic groups, or [...] Recorded Patient Health Questionnaire-2 Score 0 07/08/2023 [facility] [place] of Occupat ional Health - Occupational Stress [...] in a chcf (including now)? No 07/07/2023 Sex and Gender [...] on filedocumented in this encounter Care Teams Senior Merchandiser Relationship Specialty Start Date End Date Henrik Tubbs MD PCP - General Family Medicine 07/08/23 Henrik Tubbs MD [address] [place] [address] PCP - Medical [place] [employer] 03/18/15 03/17/99 documented as of this encounter
--- OUTSIDE RECORDS SUMMARY | 2024-12-07 10:30 | XMS_ITS | Clinical Summary ---
Author Organization REMOTV s tem Address [id number] [address] [place] [address] Care Team Providers Care System Development Manager Name Role Phone MonikDaniella bond Kaycee [employer]ER Primary Care Provider Allergies No known active [...] PM CARDIOVASCULAR - 02/02/2019 9:55 AM EST [facility] Patient Name: Charlie Saldana Procedure Date No Time: 02/02/2019 CSN : [id number] Date of : 1970 Admit Type: Outpatient Age: 48 Room: [place] [address] Gender: Male Note Status: Finalized Attending MD: [...] were monitored continuously. The OLYMPUS CF-190L # [id number] ADULT COLONOSCOPE was introduced through the anus [...] 1 week. Procedure Code(s): --- Professional --- 27211, Colonoscopy, flexible; with ablation of tumor(s), polyp(s), or other lesion(s) (includes pre- and post-dilation and guide wire passage, when performed) 59540, 59, Colonoscopy, flexible; with removal of tumor(s), [...] or abscess without bleeding CPT copyright 2018 [employer]. All rights reserved. The codes documented in this report are preliminary and upon data coder operator review may be revised to meet current compliance requirements. DO Chad Ruiz DO 02/02/2019 9:54:12 AM Number of Addenda: 0 Note Initiated On: 02/02/2019 9:27 AM Procedure Note Chad Krishnamurthy DO - 02/02/2019 [facility] Patient Name: Charlie Saldana Procedure Date No Time: 02/02/2019 CSN : [id number] Date of : 1970 Admit Type: Outpatient Age: 48 Room: [place] [address] Gender: Male Note Status: Finalized Attending MD: Chad Krishnamurthy DO Procedure: Colonoscopy Indications: Abdominal pain in the left lower quadrant, Rectal bleeding Providers: Chad Krishnamurthy DO Medicines: Propofol per Anesthesia Complications: No immediate complications. Procedure: After I obtained informed consent, the scope waspassed under direct vision. Throughout the procedure, the patient's blood pressure, pulse, and oxygensaturations were monitored continuously. The OLYMPUS CF-190L # [id number] ADULT COLONOSCOPE was introduced through the anus [...] 1 week. Procedure Code(s): --- Professional --- 14799, Colonoscopy, flexible; with ablation of tumor(s), polyp(s), or other lesion(s) (includespre- and post-dilation and guide wire passage, when performed) 33593, 59, Colonoscopy, flexible; with removal of tumor(s), polyp(s), or other lesion(s) by snare technique Diagnosis Code(s): --- Professional --- K62.1, Rectal polyp D12.3, Benign neoplasm of transverse colon (hepatic flexure orsplenic flexure) D12.2, Benign neoplasm of ascending colon R10.32, Left lower quadrant pain K62.5, Hemorrhage of anus and rectum K57.30, Diverticulosis of large intestine without perforation orabscess without bleeding CPT copyright 2018 [employer]. All rights reserved. The codes documented in this report are preliminary and upon data coder operator reviewmay be revised to meet current compliance requirements. DO Chad Ruiz DO 02/02/2019 9:54:12 AM Number of Addenda: 0 Note Initiated On: 02/02/2019 9:27 AM Chad Krishnamurthy DO GI PROCEDURE ORDERABLES Fin al Result PM CARDIOVASCULAR from Last 3 Months or Most Recently Relevant to Health Maintenance Insurance [address] [place] [address] [employer] Care Teams System Development Manager Relationship Specialty Start Date End Date Daniella Brice, [employer]ER [address] [place] [address] PCP - General Nurse Practitioner 12/22/18
--- OUTSIDE RECORDS SUMMARY | 2024-12-07 10:30 | XMS_ITS | Encounter Summary ---
Author Organization [facility] Address [address] [place] [address] Care Team Providers Care Rock Singer Name Role Phone Henrik Tubbs MD Primary Care Provider [phone] Henrik Tubbs MD Unavailable Encounter Details Date Type Department Care Team (Late st Contact Info) Description 08/25/2024 [facility] [address] [facility] [place] [address] Henrik Tubbs MD [address] [place] [address] XR LUMBAR SPINE 2 OR 3V Social History Tobacco Use Types Packs/Day Years [...] week 08/24/2024 How often do you attend amish or mormonism serv ices? Never 08/24/2024 Do you belong to any clubs o r organizations such as amish groups, unions, fraternal or athletic groups, or [...] Recorded Patient Health Questionnaire-2 Score 0 07/08/2023 [facility] [place] of Occupat ional Health - Occupational Stress [...] place to sleep or slept in a snf (including now)? No 07/07/2023 Housing Stability Vital Sign Answer Saul e Recorded In the last 12 months, was t here a time when you were not able to pay the mortgage or rent on time? No 08/24/2024 Number of Times Moved in the Last Year Not on fi le 08/24/2024 At any time in the past 12 m [facility], were you homeless or living in a snf (including now)? No 08/24/2024 Sex and Gender Information Value Date Recorded Sex Assigned at Not on file Legal Sex Male 6:58 PM EDT Gender Identity Not on file Sexual Orientation Not on file documented as of this encounter Plan of Treatment Not on file documented as of this encounter Visit Diagnoses Not on filedocumented in this encounter Care Teams Rock Singer Relationship Specialty Start Date End Date Henrik Tubbs MD PCP - General Family Medicine 07/08/23 Henrik Tubbs MD [address] [place] [address] PCP - Medical [place] [employer] 03/18/15 03/17/99 documented as of this encounter
--- OUTSIDE RECORDS SUMMARY | 2024-12-07 10:30 | XMS_ITS | Clinical Summary ---
Author Organization [facility] Address [address] [place] [address] Care Team Providers Care Bleach Boiler Packer Name Role Phone Henrik Tubbs MD Primary Care Provider [phone] Allergies No known active allergies Medications omeprazole (PriLOSEC) [address] capsule Take 40 mg by mouth twice a day. 05/31/2019 Active verapamil SR (Calan-SR) 180 mg ER tabletIndications :SVT (supraventricular tachycardia),Prim rachel hypertension Take 1 tablet (180 mg) by mouth at bedtime. Do not crush or chew. 90 tablet 3 08/31/2024 09/01/19 26 Active aspirin 81 mg EC tablet Take 81 mg by mouth in the morning. Active losartan (Cozaar) 25 mg tabletIndications :Primary hypertension Take 1 tablet (25 mg) by mouth in the morning. 90 tablet 3 12/07/2024 12/08/19 26 Active Active Problems Problem Noted Date Diagnosed Date Chronic left-sided low back pain with left-sided sciatica 08/25/2024 Paroxysmal SVT (supraventricular tachycardia) Abnormal EKG 07/08/2023 Chronic pansinusitis 07/08/2023 Dyspepsia 07/08/2023 Elevated blood pressure read ing without diagnosis of hypertension 07/08/2023 Thoracic spine pain 07/08/2023 Essential hypertension 01/19/2020 Ex-smoker 01/19/2020 Palpitations 01/19/2020 Tachycardia 01/19/2020 Encounters Date Type Department Care Team Description 12/07/2024 9:30 AM EDT Office Visit [facility] [address] [place] [address] Juan Daniel Cordova MD SVT (supraventricular tachycardia) (Primary Dx); Primary hypertension; SOBIA (obstructive sleep apnea); Pulmonary hypertension (CMS/HCC); Elevated bilirubin 10/06/2024 Telephone [facility] [address] [place] [address] Chrissie Baker MA 09/24/2024 Orders Only [facility] [address] [place] [address] ProviderLong MD 09/08/2024 Telephone [facility] [address] [place] [address] Chrissie Baker MA from Last 3 Months Family History Medical [...] Heterosexual or Straight 11/16 9:14 AM EDT Last Filed Vital Signs Vital Sign Reading [...] Mass Index 27.2 12/07/2024 9:27 AM EDT Plan of Treatment Upcoming Encounters Date Type Department Care Team (Late st Contact Info) Description 01/12/2025 11:45 AM EDT Office Visit [facility] [address] [place] [address] Fabián Sanches MD [address] [place] [address] Health Maintenance Due Date Last Done Comments CT Colonography 1970 FIT-DNA 1970 FIT 1970 FOBT 1970 Sigmoidoscopy 1969 Depression Screening 1981 Hepatitis B Vaccines (1 of 3 - 19+ 3-dose series) 1988 Adult Tetanus 10/27/1991 Zoster Vaccines (1 of 2) 10/27/2019 COVID-19 Vaccine ( - 2023-2 5 season) 2024 Influenza Vaccine (#1) 2024 Colonoscopy 02/02/2029 02/02/2019 [...] on patient's age to complete this topic Procedures Procedure Name Priority Date/Time Associated Diagnosis Comments COMPLETE TRANSTHORACIC ECHO (TTE) W/WO IMAGING AGENT, STRAIN, 3D, BUBBLE STUDY Routine 09/23/2024 4:32 PM EDT from Last 3 Months Results * Complete Echo (TTE) w/wo Imaging Agent, Strain, 3D, Bubble Study (09/23/2024 4:32 PM EDT) Anatomical Region Laterality Modality Ultrasound Historical Provider MD CV ECHO PROCEDURES Final Result from Last 3 Months Insurance [employer] [place] [id number] Care Teams Bleach Boiler Packer Relationship Specialty Start Date End Date Henrik Tubbs MD [address] [place] [address] PCP - General Family Medicine 08/31/24
[2024-12-07 11:08] LABS: Anion Gap 11.3; Blood Urea Nitrogen 16.0 mg/dL (7.0-18.0); Calcium 8.3 mg/dL (8.5-10.1); Carbon Dioxide 30.7 mmol/L (21.0-32.0); Chloride 102 mmol/L (98-107); Estimated GFR (African America >60 (>=60 mL/min/1.73m^2); Estimated GFR (Non-African Ame >60 (>=60 mL/min/1.73m^2); Glucose 98 mg/dL (74-106); Potassium 4.0 mmol/L (3.5-5.1); Sodium 140 mmol/L (136-145)
== END 2024-12-07 10:27 | disposition home or self-care (01) ==
LOC: LAB 10:27
PROVIDERS: PCP Family Medicine; Visit Provider Internal Medicine Interventional Cardiology
DX: I10 Essential (primary) hypertension (principal)
CPT/HCPCS: 36415; 80048

== ENCOUNTER 2024-12-10 10:52 | Outpatient (OUT) | payer OTHER, SELFPAY ==
--- OUTSIDE RECORDS SUMMARY | 2024-12-10 06:39 | XMS_ITS | Continuity of Care Document ---
Author Organization [facility] Address [address] [place] [address] Phone Care Team Providers Care Sales Support Technician Name Role Phone Henrik Tubbs MD Primary Care Provider [phone] Juan Daniel Cordova MD Attending Provider [phone] Henrik Tubbs MD Attending Provider Care Teams Patient Care Team Team Status: Active Member Role Status Dates Henrik Tubbs MD Primary Care Provider Active Patient Care Team Team Status: Active Member Role Status Dates Henrik Tubbs MD Primary Care Provider Active S tart: December 07, 2024 Juan Daniel Cordova MD Attending Provider Active Start: December 07, 2024 Patient Care Team Team Status: Inactive Member Role Status Dates Henrik Tubbs MD Primary Care Provider Active S tart: December 10, 2024 End: December 10, 2024 Henrik Tubbs MD Attending Provider Active Star t: December 10, 2024 End: December 10, 2024 Chief Complaint and Reason for Visit Chief Complaint Admit Date talk about liver function November 9:52am Reason for Visit Admit Date Elevated bilirubin December 10, 2024 9:52am Elevated blood pressure read ing without diagnosis of hypertension December 10, 2024 9:52am Paroxysmal SVT (supraventricular tachyca rdia) December 10, 2024 9:52am Allergies, Adverse Reactions, Alerts Allergen Type Severity Reaction Last Updated Verified Status No Known Allergies Allergy Unknown 2024 10:12am Yes Active Social History Smoking Status Status Start Date End Date Date of Observa tion Ex-smoker (finding) 2024 10:14am Observation Status Observation Response Date of Response Legal Sex Male (finding) Sex Assigned At Male October 11 h, 1971 Problems Active Problems Medical Problem Onset Date Status Chronic pansinusitis Unknown Active Thoracic spine pain Unknown Active Paroxysmal SVT (supraventricular tachycardia) Un known Active Dyspepsia Unknown Active Elevated bilirubin Unknown Active Elevated blood pressure reading without diagnosi s of hypertension Unknown Active Chronic left-sided low back pain with left-sided sciatica Unknown Active Inactive/Resolved Problems Medical Problem Onset Date Status Abnormal EKG Unknown Resolved Medications Medication Status Dose Units Route Directions Qty Days St art Date Stop Date End Date Instructions Adherence Verapamil 180 mg tablet extended release Active MG PO 2024 12:00a m Complies with drug therapy Losartan 25 mg tablet Active MG PO Daily 2024 12:00a m Complies with drug therapy Aspirin 81 mg tablet Active 81 MG PO Daily 2024 12:00a m Complies with drug therapy Relevant Diagnostic Tests and/or Laboratory Data Laboratory Results Test Collection Date/Time Result Date/Time Result Interpretation Reference Range Result Comment Performing Site Anion Gap December 07, 2024 10:39am December 07, 2024 10:39am 11.3 BUN/Creatini ne Ratio December 07, 2024 10:39am December 07, 2024 10:39am 15.0 Blood Urea Nitrogen December 07, 2024 10:39am December 07, 2024 10:39am 16.0 mg/dL 7.0-18.0 Calcium Level December 07, 2024 10:39am December 07, 2024 10:39am 8.3 mg/dL Below low normal 8.5-10.1 Chloride Level December 07, 2024 10:39am December 07, 2024 10:39am 102 mmol/L 98-107 Carbon Dioxide Level December 07, 2024 10:39am December 07, 2024 10:39am 30.7 mmol/L 21.0-32.0 Creatinine December 07, 2024 10:39am December 07, 2024 10:39am 1.07 mg/dL 0.70-1.30 Estimated GFR () December 07, 2024 10:39am December 07, 2024 10:39am >60 >=60 mL/min/1.7 3m 2 Estimated GFR (Non- December 07, 2024 10:39am December 07, 2024 10:39am >60 >=60 mL/min/1.7 3m 2 Glucose Level December 07, 2024 10:39am December 07, 2024 10:39am 98 mg/dL 74-106 Potassium Level December 07, 2024 10:39am December 07, 2024 10:39am 4.0 mmol/L 3.5-5.1 Sodium Level December 07, 2024 10:39am December 07, 2024 10:39am 140 mmol/L 136-145 Vital Signs Vital Reading Result Reference Range Collection Date/Time Height 61 [in_i] December 10, 2024 10:11am Weight 87.99 kg December 10, 2024 10:11am Body Temperature 97.5 [degF] 97.6-99.0 November 172024 10:11am Heart Rate 85 /min 60-100 December 10, 2024 10:11am Respiratory rate 18 /min 12-24 November 172024 10:11am Oxygen saturation by Pulse oximetry 98 % 95-100 December 10, 2024 10:11am BP Systolic 132 mm[Hg] 100-140 December 10, 2024 10:11am BP Diastolic 80 mm[Hg] 60-100 December 10, 2024 10:11am BMI (Body Mass Index) 36.6 kg/m2 2024 10:11am Advance Directives Advance Directive Response Recorded Date/ Time Advance Directives No November 1:18pm Insurance Providers Guarantor Charlie Saldana Address [address] [place] [id number] Contact Info. Home Phone: Payer Policy Id Subscriber's Name Subscriber Id Effectiv e Date Expiration Date [facility] [id number] Charlie Saldana [id number] Encounters Encounter Location(s) Arrival/Admit Date Discharge/Depart Date Provider(s) Non-patient / Non-visit -[facility] December 07, 2024 10:39am Juan Daniel Page MD Departed Physician/Prov ider Office Visit -[facility] [place] December 10, 2024 9:52am December 10, 2024 10:37am Henrik Tubbs MD Recent Diagnosis Onset Date Admit Date Elevated bilirubin Unknown November 9:52am Elevated blood pressure read ing without diagnosis of hypertension Unknown December 10, 2024 9:52am Paroxysmal SVT (supraventricular tachycardia) Un known December 10, 2024 9:52am Assessments Diagnosis Onset Date Resolution Status Admit Date Elevated bilirubin acute Septem robin 2024 9:52am Elevated blood pressure reading without diagnosis of hypertension acute December 10, 2024 9:52am Paroxysmal SVT (supraventricular tachycardia) acute S eptember 2024 9:52am Plan of Treatment Future Tests Future scheduled test information is unavailable Pending Tests Pending diagnostic test information is unavailable Future Visits Future appointment information is unavailable Referrals to Other Providers Referral information is unavailable Future Procedures Procedure Name Ordered Date Scheduled Date Complete Blood Count Auto Diff December 10, 025 10:32am Hepatic Panel December 10, 2024 10:32am Future Medications Future medication information is unavailable Patient Instructions Patient instructions are unavailable
[2024-12-10 11:16] LABS: Hematocrit 48.1 % (42.0-54.0); Hemoglobin 16.2 g/dL (14.0-18.0); Immature Granulocytes Abs Auto 0.02 10^3/uL (0.00-0.03); Immature Granulocytes Pct Auto 0.3 % (0.0-0.5); Lymphocytes Absolute Auto 1.8 10^3/uL (1.2-3.8); Mean Corpuscular HGB Conc 33.7 g/dL (29.9-35.2); Mean Corpuscular Hemoglobin 28.8 pg (25.9-34.0); Mean Corpuscular Volume 85.4 fL (80.0-94.0); Platelet Count 168 10^3/uL (150-450); Red Blood Count 5.63 10^6/uL (4.70-6.10); White Blood Count 5.8 10^3/uL (4.0-11.0)
[2024-12-10 11:39] LABS: Alanine Aminotransferase 28 U/L (16-63); Albumin Globulin Ratio 1.0; Albumin Level 3.6 g/dL (3.4-5.0); Alkaline Phosphatase 67 U/L (46-116); Aspartate Amino Transferase 17 U/L (15-37); Globulin 3.5 g/dL; Total Protein 7.1 g/dL (6.4-8.2)
== END 2024-12-10 10:53 | disposition home or self-care (01) ==
LOC: LAB 10:53
PROVIDERS: PCP Family Medicine; Visit Provider Family Medicine
DX: Z79.899 Other long term (current) drug therapy (principal); R17 Unspecified jaundice
CPT/HCPCS: 36415; 80076; 85025